=== PATIENT | female | born 1965 | race Caucasian/White ===

== ENCOUNTER 2018-12-04 07:14 | Inpatient (IN) | payer OTHER ==
[~2018-12-04] VITALS: Ht 165.1 cm; Wt 59.9 kg
[~2018-12-04 07:14] MED LIST: BUPIVACAINE 7.5MG/ML /DEXTROSE 82.5MG/ML 2 ML AMP INJ ONE; CYCLOBENZAPRINE5 MG PO; LYRICA25 MG PO; NORCO 10-325 T1 EACH PO; ROPIVACAINE 246.25 MG, EPINEPHRINE HCL 1:1000 1ML 0.5 MG, CLONIDINE HCL 0.08 MG, KETORO... INJ ONE; ULTRAM50 MG PO
--- OUTSIDE RECORDS SUMMARY | 2018-12-04 07:18 | XMS REPORT | CCD ---
Author Author Auto Generated Organization [facility] Address Unknown Phone Unavailable Care Team Providers Care Energy Scheduler Name Role Phone Darnell Seymour CP Allergies, Adverse Reactions, Alerts Substance Reaction Status NKDA Active Medications Medication Instructions Start Date End Date Status [place] 5/325 oral 1 tab, Route: PO, Drug Form: TAB, 06/14/2013 06/14/2013 Completed tablet Dosing Weight 55.455, kg, ONCE, PRN Pain, Start date: 06/14/13 20:10:00 Augmentin 875 mg 875 mg, PO, BID, 20 tab, 06/14/2013 06/24/2013 Ordered oral tablet Substitution Allowed, Maintenance [place] 5/325 oral 1 - 2 TABS, PO, Q6H, PRN, 20 tab, 06/14/2013 Ordered tablet as needed for pain, Substitution Allowed, Maintenance, TAB Ultram 50 mg oral 50 mg, 1 tab, Route: PO, Drug form: 06/14/2013 06/14/2013 Completed tablet TAB, ONCE, Dosing Weight 55.455, kg, PRN Pain, Start date: 06/14/13 19:43:00 tetanus-diphtheria 0.5 ml, Route: IM, Dosing Weight 06/14/2013 06/14/2013 Completed toxoids adult 55.455, kg, ONCE, STAT, Start date: intramuscular 06/14/13 19:43:00, Stop date: suspension 06/14/13 19:43:00 Immunizations Vaccine Date Status tetanus-diphtheria toxoids 06/14/2013 Auth (Verified) Vital Signs Most recent to oldest [Reference Range]: 1 2 Height 165.1 cm (06/14/2013 19:25:00) Temperature Oral [96.4-99.1 DegF] 99.2 DegF *HI* (06/14/2013 21:21:00) 98.5 DegF (06/14/2013 19:25:00) Systolic Blood Pressure [90-140 mmHg] 110 mmHg (06/14/2013 21:21:00) 133 mmHg (06/14/2013:25:00) Diastolic Blood Pressure [60-90 mmHg] 75 mmHg (06/14/2013:21:00) 90 mmHg (06/14/2013:25:00) Respiratory Rate [14-20 BRMIN] 18 BRMIN (06/14/2013:21:00) 18 BRMIN (06/14/2013:25:00) Peripheral Pulse Rate [60-100 bpm] 98 bpm (06/14/2013:21:00) 100 bpm (06/14/2013:25:00) Weight 55.455 kg (06/14/2013:25:00)
--- OUTSIDE RECORDS SUMMARY | 2018-12-04 07:18 | XMS REPORT | Continuity of Care Document ---
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 appearing, nondisplaced coronally oriented extra-articular fractures in the posterior calcaneus without significant adjacent bone marrow edema. The Achilles tendon and plantar fascia are intact. The dorsal and plantar tendons across the foot are intact. The Lisfranc's ligament complex is intact. The plantar plate complexes are all intact. No extracapsular mass or cystic fluid collection is seen. There is no evidence of Armas's neuroma. There is moderate-severe atrophy of the interosseous musculature in the forefoot. IMPRESSION: 1. Subacute, nondisplaced, intra-articular fracture of the 1st metatarsal base with surrounding bone marrow edema. 2. Subacute, nondisplaced fractures of the 2nd and 3rd metatarsal necks with surrounding bone marrow edema. 3. Subacute to chronic appearing nondisplaced extra-articular fractures of the posterior calcaneus. 4. Osteonecrosis in the talar head with underlying bone marrow edema. 5. Nonspecific subcortical bone marrow edema in the dorsal aspect of the medial cuneiform bone as well as medial navicular bone. 6. No evidence of osteomyelitis. SL: [id number] 04/19/2018 - - Read by: Jacobo Castro MD Dictated Date/time: 04/20/18 07:48 Electronically Signed by: Jacobo Castro MD 04/20/18 07:58 FINAL REPORT [facility] ANEMIA STUDY Folate Lvl 8.4 ng/mL >=3.0 ng/mL 04/19/2018 [facility] ANEMIA STUDY Vitamin B12 Lvl 318 pg/mL 254 - 1320 04/19/2018 [facility] CHEM PANEL eGFR 102 mL/min/1.73m2 04/19/2018 Result Comment: The eGFR is calculated using the CKD-EPI formula. In most young, healthy individuals the eGFR will be >90 mL/min/1.73m2. The eGFR declines with age. An eGFR of 60-89 may be normal in some populations, particularly the elderly, for whom the CKD-EPI formula has not been extensively validated. Use of the eGFR is not recommended in the following populations: Individuals with unstable creatinine concentrations, including patients and those with serious co-morbid conditions. Patients with extremes in muscle mass or diet. The data above are obtained from the National Kidney Disease Education Program (NKDEP) which additionally recommends that when the eGFR is used in patients with extremes of body mass index for purposes of drug dosing, the eGFR should be multiplied by the estimated BMI. [facility] CHEM PANEL BUN 7 mg/dL 7 - 22 04/19/2018 [facility] CHEM PANEL B/C Ratio 11 6 - 25 04/19/2018 [facility] CHEM PANEL Total Protein 5.3 g/dL 6.4 - 8.4 04/19/2018 [facility] CHEM PANEL AGAP 14.1 meq/L 10.0 - 20.0 04/19/2018 [facility] CHEM PANEL Calcium Lvl 7.4 mg/dL 8.5 - 10.5 04/19/2018 [facility] CHEM PANEL Albumin Lvl 2.2 g/dL 3.5 - 5.0 04/19/2018 [facility] CHEM PANEL Globulin 3.1 g/dL 2.7 - 4.2 04/19/2018 [facility] CHEM PANEL Potassium Lvl 3.1 meq/L 3.5 - 5.1 04/19/2018 [facility] CHEM PANEL Sodium Lvl 146 meq/L 135 - 145 04/19/2018 [facility] CHEM PANEL Chloride Lvl 118 meq/L 95 - 109 04/19/2018 [facility] CHEM PANEL Creatinine Lvl 0.66 mg/dL 0.50 - 1.40 04/19/2018 [facility] CHEM PANEL CO2 17 meq/L 24 - 32 04/19/2018 [facility] CHEM PANEL ALT 19 unit/L 0 - 65 04/19/2018 [facility] CHEM PANEL Alk Phos 77 unit/L 39 - 136 04/19/2018 [facility] CHEM PANEL AST 21 unit/L 0 - 37 04/19/2018 [facility] CHEM PANEL A/G Ratio 0.7 0.7 - 1.6 04/19/2018 [facility] CHEM PANEL Bili Total 0.3 mg/dL 0.2 - 1.3 04/19/2018 [facility] CHEM PANEL Glucose Lvl 95 mg/dL 70 - 99 04/19/2018 [facility] HEMATOLOGY Eosinophils 0.7 % 0.0 - 4.0 04/19/2018 [facility] HEMATOLOGY Neutrophils # 3.6 K/CMM 1.5 - 8.1 04/19/2018 [facility] HEMATOLOGY Basophils 1.3 % 0.0 - 1.0 04/19/2018 [facility] HEMATOLOGY Monocytes # 0.8 K/CMM 0.0 - 0.8 04/19/2018 [facility] Lymphocytes # 2.0 K/CMM 1.0 - 5.5 04/19/2018 [facility] Macrocyte 3+ *NA* (04/19/18 3:48 AM) None Seen 04/19/2018 [facility] Basophils # 0.1 K/CMM 0.0 - 0.2 04/19/2018 [facility] Monocytes 11.6 % 2.0 - 12.0 04/19/2018 [facility] Lymphocytes 30.2 % 20.0 - 40.0 04/19/2018 [facility] Segs 56.2 % 45.0 - 75.0 04/19/2018 [facility] MPV 8.2 fL 7.4 - 10.4 04/19/2018 [facility] Platelet 271 K/CMM 133 - 450 04/19/2018 [facility] MCHC 33.2 g/dL 32.0 - 36.0 04/19/2018 [facility] RDW 15.6 % 11.5 - 14.5 04/19/2018 [facility] RBC 2.00 M/CMM 4.20 - 5.40 04/19/2018 [facility] WBC 6.5 K/CMM 3.7 - 10.4 04/19/2018 [facility] Hgb 8.4 g/dL 12.0 - 16.0 04/19/2018 [facility] Hct 25.3 % 36.0 - 48.0 04/19/2018 [facility] MCV 126.1 fL 80.0 - 98.0 04/19/2018 [facility] MCH 41.9 pg 27.0 - 31.0 04/19/2018 [facility] URINE AND STOOL UA Urobilinogen <=1.0 mg/dL 0.1 - 1.0 04/19/2018 [facility] URINE AND STOOL UA Color Ltyellow 04/19/2018 [facility] URINE AND STOOL UA WBC 1 /HPF 0 - 5 04/19/2018 [facility] URINE AND STOOL UA Sq Epi Occasional /LPF Few /LPF 04/19/2018 [facility] URINE AND STOOL UA Leuk Est Negative (04/18/18 9:57 PM) Negative 04/19/2018 [facility] URINE AND STOOL UA Glucose Negative mg/dL Negative mg/dL 04/19/2018 [facility] URINE AND STOOL UA Bili Negative *NA* (04/18/18 9:57 PM) Negative 04/19/2018 [facility] URINE AND STOOL UA Ketones Negative mg/dL Negative mg/dL 04/19/2018 [facility] URINE AND STOOL UA Blood Negative (04/18/18 9:57 PM) Negative 04/19/2018 [facility] URINE AND STOOL UA Nitrite Negative (04/18/18 9:57 PM) Negative 04/19/2018 [facility] URINE AND STOOL UA Spec Grav 1.012 <=1.030 04/19/2018 [facility] URINE AND STOOL UA pH 6.0 5.0 - 8.0 04/19/2018 [facility] URINE AND STOOL UA Protein Negative mg/dL Negative mg/dL 04/19/2018 [facility] URINE AND STOOL UA Turbidity Clear (04/18/18 9:57 PM) Clear 04/19/2018 [facility] CARDIAC ENZYMES Troponin-I null 0.00 - 0.40 04/19/2018 [facility] CARDIAC ENZYMES Total CK 49 unit/L 12 - 191 04/19/2018 [facility] CHEM PANEL Lactic Acid Lvl 1.8 mMol/L 0.5 - 2.2 04/19/2018 [facility] CHEM PANEL eGFR 100 mL/min/1.73m2 04/19/2018 Result Comment: The eGFR is calculated using the CKD-EPI formula. In most young, healthy individuals the eGFR will be >90 mL/min/1.73m2. The eGFR declines with age. An eGFR of 60-89 may be normal in some populations, particularly the elderly, for whom the CKD-EPI formula has not been extensively validated. Use of the eGFR is not recommended in the following populations: Individuals with unstable creatinine concentrations, including patients and those with serious co-morbid conditions. Patients with extremes in muscle mass or diet. The data above are obtained from the National Kidney Disease Education Program (NKDEP) which additionally recommends that when the eGFR is used in patients with extremes of body mass index for purposes of drug dosing, the eGFR should be multiplied by the estimated BMI. [facility] CHEM PANEL AST 21 unit/L 0 - 37 04/19/2018 [facility] CHEM PANEL ALT 20 unit/L 0 - 65 04/19/2018 [facility] CHEM PANEL Globulin 2.9 g/dL 2.7 - 4.2 04/19/2018 [facility] CHEM PANEL Albumin Lvl 2.3 g/dL 3.5 - 5.0 04/19/2018 [facility] CHEM PANEL Total Protein 5.2 g/dL 6.4 - 8.4 04/19/2018 [facility] CHEM PANEL AGAP 13.7 meq/L 10.0 - 20.0 04/19/2018 [facility] CHEM PANEL A/G Ratio 0.8 0.7 - 1.6 04/19/2018 [facility] CHEM PANEL Chloride Lvl 117 meq/L 95 - 109 04/19/2018 [facility] CHEM PANEL B/C Ratio 9 6 - 25 04/19/2018 [facility] CHEM PANEL Calcium Lvl 7.2 mg/dL 8.5 - 10.5 04/19/2018 [facility] CHEM PANEL CO2 16 meq/L 24 - 32 04/19/2018 [facility] CHEM PANEL Potassium Lvl 2.7 meq/L 3.5 - 5.1 04/19/2018 Result Comment: Critical Result(s) called to Terry at 04/18/2018 22:15 by iko. Read back OK. [facility] CHEM PANEL Sodium Lvl 144 meq/L 135 - 145 04/19/2018 [facility] CHEM PANEL Creatinine Lvl 0.70 mg/dL 0.50 - 1.40 04/19/2018 [facility] CHEM PANEL BUN 6 mg/dL 7 - 22 04/19/2018 [facility] CHEM PANEL Glucose Lvl 95 mg/dL 70 - 99 04/19/2018 [facility] CHEM PANEL Bili Total 0.1 mg/dL 0.2 - 1.3 04/19/2018 [facility] CHEM PANEL Alk Phos 83 unit/L 39 - 136 04/19/2018 [facility] CHEM PANEL Procalcitonin Lvl 87.53 ng/mL 0.00 - 0.10 04/19/2018 Result Comment: Critical Result(s) called to Terry at 04/18/2018 22:32 by iko. Read back OK. [facility] HEMATOLOGY PTT 27.7 s 22.9 - 35.8 04/19/2018 [facility] HEMATOLOGY PT 13.2 s 12.0 - 14.7 04/19/2018 [facility] HEMATOLOGY INR 1.00 0.85 - 1.17 04/19/2018 [facility] HEMATOLOGY MPV 8.1 fL 7.4 - 10.4 04/19/2018 [facility] HEMATOLOGY Platelet 351 K/CMM 133 - 450 04/19/2018 [facility] HEMATOLOGY MCHC 32.1 g/dL 32.0 - 36.0 04/19/2018 [facility] Hct 28.9 % 36.0 - 48.0 04/19/2018 [facility] MCH 40.2 pg 27.0 - 31.0 04/19/2018 [facility] RDW 15.5 % 11.5 - 14.5 04/19/2018 [facility] MCV 125.5 fL 80.0 - 98.0 04/19/2018 [facility] WBC 5.5 K/CMM 3.7 - 10.4 04/19/2018 [facility] Hgb 9.3 g/dL 12.0 - 16.0 04/19/2018 [facility] RBC 2.31 M/CMM 4.20 - 5.40 04/19/2018 [facility] Macrocyte 3+ *NA* (04/18/18 9:11 PM) None Seen 04/19/2018 [facility] Plt Morph Normal (04/18/18 9:11 PM) 04/19/2018 [facility] RBC Morph See Note (04/18/18 9:11 PM) 04/19/2018 [facility] Segs 43.5 % 45.0 - 75.0 04/19/2018 [facility] Monocytes 11.1 % 2.0 - 12.0 04/19/2018 [facility] Lymphocytes 42.9 % 20.0 - 40.0 04/19/2018 [facility] Eosinophils 0.7 % 0.0 - 4.0 04/19/2018 [facility] Lymphocytes # 2.4 K/CMM 1.0 - 5.5 04/19/2018 [facility] Monocytes # 0.6 K/CMM 0.0 - 0.8 04/19/2018 [facility] Basophils # 0.1 K/CMM 0.0 - 0.2 04/19/2018 [facility] Basophils 1.8 % 0.0 - 1.0 04/19/2018 [facility] Neutrophils # 2.4 K/CMM 1.5 - 8.1 04/19/2018 [facility] Foot series DX Foot series DX Exam: Right Foot series DX Clinical Indication: Right foot pain and swelling Comparison: None FINDINGS: 3 views of the right foot are performed. Status post amputation of the great toe at the level of the MTP joint. Diffuse osteopenia is present. Cortical irregularity with surrounding hypertrophic change at the 2nd and 3rd metatarsal necks are suspicious for subacute fractures. No osseous erosions identified. Normal alignment without dislocation. Soft tissue swelling is present in the forefoot. No radiopaque foreign bodies or soft tissue gas. IMPRESSION: 1. Suspected subacute fractures of the 2nd and 3rd metatarsal necks. Changes of underlying osteomyelitis may also be considered. Further assessment with MRI of the foot may be performed as clinically warranted. 2. Status post amputation of the great toe. 3. Forefoot soft tissue swelling. SL: [id number] 04/18/2018 - - Read by: Rogelio Santana MD Dictated Date/time: 04/18/18 16:48 Electronically Signed by: Rogelio Santana MD 04/18/18 16:52 FINAL REPORT [facility] Ext Lower Venous Doppler Unilat US Ext Lower Venous Doppler Unilat US EXAM: Right lower extremity venous Doppler ultrasound HISTORY: Right lower extremity pain COMPARISON: Ultrasound 07/23/2014 TECHNIQUE: Sonographic evaluation of the right lower extremity deep veins was performed using high resolution B-mode imaging, along with pulse and color Doppler imaging. FINDINGS: The common femoral, femoral and popliteal veins and greater saphenous and posterior tibial veins are patent. IMPRESSION: No deep vein thrombosis is seen in the right lower extremity. SL: [id number] 04/18/2018 - - Read by: Jose Luis Johnson MD Dictated Date/time: 04/18/18 16:25 Electronically Signed by: Jose Luis Johnson MD 04/18/18 16:25 FINAL REPORT [facility] Pelvis AP DX Pelvis AP DX EXAM: Pelvis AP DX DATE: 05/26/2016 8:46 PM CDT INDICATION: Pain Post Trauma COMPARISON: 02/16/2016. IMPRESSION: Diffuse osteopenia. No definite acute fracture or dislocation. Severe degenerative change of the right hip with marked joint space narrowing and subchondral sclerosis and lucency. : [id number] 05/26/2016 - - Read by: David Kyle MD Dictated Date/time: 05/26/16 21:36 Electronically Signed by: David Kyle MD 05/26/16 21:37 FINAL REPORT [facility] Hip 2/3 views uni DX Hip 2/3 views uni DX EXAM: XR RIGHT HIP, 2 VIEWS DATE: 05/26/2016 8:46 PM CDT INDICATION: Pain Post Trauma. COMPARISON: Right hip radiographs dated 02/16/2016. TECHNIQUE: Frontal and frogleg lateral views of the right hip were obtained. FINDINGS: There are severe degenerative changes of the right hip, with superior migration of the right femoral head associated with extensive joint space narrowing, femoral head remodeling, articular surface sclerosis, as well as bulky osteophyte formation. The visualized sacroiliac joint and symphysis pubis are unremarkable. IMPRESSION: 1. No definite fracture or dislocation of the right hip. 2. Severe degenerative changes of the right femoral-acetabular joint. SL: [id number] 05/26/2016 - - Read by: Merrill Webber MD Dictated Date/time: 05/26/16 21:49 Electronically Signed by: Merrill Webber MD 05/26/16 21:51 FINAL REPORT [facility] Hip 2/3 views uni DX Hip 2/3 views uni DX Patient Name: MATT CALZADA : 1965; Age: 50 years y/o Female MR: [id number] Study: Hip 2/3 views uni DX 02/16/2016 1:46 PM CDT Ordering Physician: Clinical Indication: Pain Post Trauma; right hip pain Comparison: 09/28/2015 FINDINGS: The 2 views of the right hip show normal alignment without fractures or dislocations. There are no radio-opaque foreign bodies. The acetabulum is unremarkable. Right hip joint space shows narrowing with superior femoral head migration, femoral head flattening, articular surface sclerosis and collar osteophytes. The visualized sacroiliac joint and symphysis pubis are unremarkable. If there is further concern, recommend follow-up radiographs or MRI for complete assessment. IMPRESSION: No fracture or dislocation of the right hip. Right hip moderately severe osteoarthritis SL: [id number] 02/16/2016 - - Read by: Chas Hall MD Dictated Date/time: 02/16/16 14:34 Electronically Signed by: Chas Hall MD 02/16/16 14:38 FINAL REPORT [facility] Femur series DX Femur series DX EXAM: XR RIGHT FEMUR 2 VIEWS DATE: 09/28/2015 7:45 PM PRODUCTION SUPPORT ANALYST INDICATION: Pain from a fall COMPARISON: Right hip radiographs from 09/11/2015 TECHNIQUE: AP and lateral radiographs of the right femur DISCUSSION: No acute fracture or malalignment is identified. Continued severe degenerative joint space narrowing of the right hip joint. No soft tissue abnormality is identified. IMPRESSION: 1. No acute fracture. 2. Unchanged severe right hip osteoarthrosis. 09/28/2015 - - This report was dictated by a Putty Mixer/Fellow. I have personally reviewed the images as well as the Resident's interpretation and agree with the findings. Read by: Jordan Dawkins MD Resident: Jordan Dawkins MD Dictated Date/time: 09/28/15 20:25 Electronically Signed by: Richi Israel MD 09/28/15 20:45 FINAL REPORT [facility] Hip 2 views DX Hip 2 views DX RIGHT HIP 2 VIEWS: There is no fracture or dislocation. There is marked narrowing of the superior joint space with flattening, sclerosis and subchondral cyst formation in the articular surfaces, and lateral subluxation of the femoral head, unchanged from the previous radiographs on 07/29/2015. The findings are progressive compared to 07/23/2014. There are no other new findings. IMPRESSION: Severe degenerative changes in the right hip without acute radiographic abnormalities. SL:13 09/11/2015 - - Read by: Julio Mathis MD Dictated Date/time: 09/11/15 16:29 Electronically Signed by: Julio Mathis MD 09/11/15 16:33 FINAL REPORT [facility] Pelvis AP DX Pelvis AP DX PELVIS (1 view) History: A pelvic and right hip pain. Comment : A frontal view of the pelvis was obtained. FINDINGS: 1. Severe degenerative changes involving the right hip. Please refer to radiographic report of the right hip. 2. The left hip is grossly normal. 3. The pelvic ring is intact. Coding: Pelvis AP CPT code: 58320 SL: 13 Chivo Patel M.D. 07/29/2015 - - Read by: Chivo Patel MD Dictated Date/time: 07/29/15 15:19 Electronically Signed by: Chivo Patel MD 07/29/15 15:21 FINAL REPORT [facility] Hip 2 views DX Hip 2 views DX RIGHT HIP (2 Views) HISTORY: Right hip pain. TECHNIQUE: The right hip was evaluated in neutral and external rotation. A prior study of 07/23/[address] scan of the pelvis of 01/25/2010 were reviewed. FINDINGS: 1. There are severe degenerative changes involving the right hip with marked narrowing of the superior joint space, slight flattening of the femoral head, subchondral sclerosis, and mild subchondral cyst formation. There has been significant worsening from approximately one year ago and marked progression from the CT scan from December 2009. 2. There is no evidence of fracture, dislocation, or acute change. 3. No destructive lesions or other osseous abnormalities. Coding: Hip min 2 views CPT code: 59108 SL: 13 Chivo Patel M.D. 07/29/2015 - - Read by: Chivo Patel MD Dictated Date/time: 07/29/15 15:16 Electronically Signed by: Chivo Patel MD 07/29/15 15:19 FINAL REPORT [facility] Spine cervical wo contrast CT (ER) Spine cervical wo contrast CT (ER) CT C-SPINE WITHOUT CONTRAST INDICATION: Trauma, pain COMPARISON: None available TECHNIQUE: CT of the cervical spine was performed without intravenous contrast. Coronal and sagittal reformatted images were utilized. FINDINGS: No fracture. Vertebral body and disc space heights maintained. No facet subluxation. No prevertebral soft tissue swelling. Normal alignment. Ligament, spinal cord and/or vascular abnormalities cannot be excluded on the basis of this examination. Lung apices clear. Thyroid unremarkable. Carotid arteries are heavily calcified, right greater than left. IMPRESSION: No acute abnormality. SL: 14 05/10/2015 - - Read by: Giancarlo Dang MD Dictated Date/time: 05/10/15 22:39 Electronically Signed by: Giancarlo Dang MD 05/10/15 22:41 FINAL REPORT [facility] Brain wo contrast CT Brain wo contrast CT CT head without contrast. CLINICAL INDICATION: Head trauma/ See Clinic Indication. Trauma, pain Comparison: 01/25/2010. TECHNIQUE: Multiple contiguous axial images of the brain were performed without IV contrast. FINDINGS: No acute territorial infarction or intracranial hemorrhage. Ventricles and subarachnoid spaces are appropriate for age. No extra-axial fluid collection. Reaves-white distinction is preserved. No mass, mass-effect, or midline shift. Osseous structures normal. Visualized paranasal sinuses are unremarkable. IMPRESSION: No acute intracranial process detected. SL: 14 05/10/2015 - - Read by: Giancarlo Dang MD Dictated Date/time: 05/10/15 22:38 Electronically Signed by: Giancarlo Dang MD 05/10/15 22:39 FINAL REPORT [facility] Abdomen AP DX Abdomen AP DX PROCEDURE: Abdomen 1 view REASON FOR EXAM: See Clinic Indication CLINICAL INDICATION: Abdominal pain, acute COMPARISON: None. FINDINGS: Nonspecific bowel gas pattern is present. Abundance of stool within the colon. Severe degenerative arthropathy of the right hip SL: 05/10/2015 - - Read by: David Kyle MD Dictated Date/time: 05/10/15 21:52 Electronically Signed by: David Kyle MD 05/10/15 21:52 FINAL REPORT [facility] Chest 2 views DX Chest 2 views DX PROCEDURE: Chest 2 views REASON FOR EXAM: See Clinic Indication CLINICAL INDICATION: Pain Post Trauma COMPARISON: Chest radiograph of 05/08/2015. CT chest abdomen pelvis of 01/25/2010. FINDINGS: Stable known 3.1 cm right upper lobe mass with partial calcification. No focal consolidation, significant pleural effusion or pneumothorax. Stable cardiac silhouette and mediastinum. Atherosclerotic thoracic aorta. SL: 05/10/2015 - - Read by: David Kyle MD Dictated Date/time: 05/10/15 21:47 Electronically Signed by: David Kyle MD 05/10/15 21:49 FINAL REPORT [facility] Chest 2 views DX Chest 2 views DX CHEST RADIOGRAPH 2 VIEWS INDICATION: Posttraumatic chest pain COMPARISON: Chest radiograph , CT Chest 01/25/2010 IMPRESSION: Multiple scattered bilateral pulmonary nodules are grossly stable in size and number. There is progressed calcification of the 3.1 cm nodule of the right upper lung. The etiology is indeterminate, potentially secondary to changes of chronic granulomatous disease. Otherwise, no acute intrathoracic abnormalities are visualized. SL: 16 05/08/2015 - - Read by: Artur Garcia MD Dictated Date/time: 05/08/15 17:05 Electronically Signed by: Artur Garcia MD 05/08/15 17:09 FINAL REPORT [facility] URINE CHEM U Preg Negative (07/23/14 2:20 PM) Negative 07/23/2014 [facility] Knee series Knee series Left knee, 4 view: Exam reason: Dot by, trauma No acute fracture or dislocation is noted. No radiopaque foreign body is noted. SL:14 06/14/2013 - - Read by: Kenji Calhoun Dictated Date/time: 06/14/13 21:00 Electronically Signed by: Kenji Calhoun MD 06/14/13 21:01 FINAL REPORT [facility] Vital Signs Vital Sign Value Date Comments Source Systolic (mm Hg) 118 04/21/2018 [facility] Diastolic (mm Hg) 77 04/21/2018 [facility] Heart Rate 78 04/21/2018 [facility] Temperature Oral (F) 97.6 F 04/21/2018 [facility] Respitory Rate 18 04/21/2018 [facility] Systolic (mm Hg) 110 04/21/2018 [facility] Diastolic (mm Hg) 75 04/21/2018 [facility] Respitory Rate 20 04/21/2018 [facility] Heart Rate 98 04/21/2018 [facility] Temperature Oral (F) 98 F 04/21/2018 [facility] Systolic (mm Hg) 125 04/21/2018 [facility] Diastolic (mm Hg) 74 04/21/2018 [facility] Respitory Rate 18 04/21/2018 [facility] Temperature Oral (F) 98 F 04/21/2018 [facility] Heart Rate 95 04/21/2018 [facility] Height 165.1 cm 04/19/2018 [facility] BMI Calculated 19.03 04/19/2018 [facility] Weight 51.875 04/19/2018 [facility] Weight 59.091 04/18/2018 [facility] Height 165.1 cm 04/18/2018 [facility] BMI Calculated 21.68 04/18/2018 [facility] Heart Rate 86 05/27/2016 [facility] Respitory Rate 18 05/27/2016 [facility] Temperature Oral (F) 98.3 F 05/27/2016 [facility] Systolic (mm Hg) 118 05/27/2016 [facility] Diastolic (mm Hg) 74 05/27/2016 [facility] Heart Rate 88 05/27/2016 [facility] Diastolic (mm Hg) 72 05/27/2016 [facility] Systolic (mm Hg) 116 05/27/2016 [facility] Respitory Rate 18 05/27/2016 [facility] Weight 59.091 05/26/2016 [facility] Temperature Oral (F) 98 F 05/26/2016 [facility] Heart Rate 105 05/26/2016 [facility] Respitory Rate 18 05/26/2016 [facility] Systolic (mm Hg) 112 05/26/2016 [facility] Diastolic (mm Hg) 69 05/26/2016 [facility] Systolic (mm Hg) 149 02/16/2016 [facility] Diastolic (mm Hg) 94 02/16/2016 [facility] Heart Rate 60 02/16/2016 [facility] Respitory Rate 20 02/16/2016 [facility] Temperature Oral (F) 98.4 F 02/16/2016 [facility] Weight 53.381 02/16/2016 [facility] Height 165.1 cm 02/16/2016 [facility] BMI Calculated 19.58 02/16/2016 [facility] Systolic (mm Hg) 141 02/16/2016 [facility] Diastolic (mm Hg) 65 02/16/2016 [facility] Heart Rate 77 02/16/2016 [facility] Respitory Rate 18 02/16/2016 [facility] Heart Rate 101 10/14/2015 [facility] Systolic (mm Hg) 133 10/14/2015 [facility] Diastolic (mm Hg) 85 10/14/2015 [facility] Respitory Rate 20 10/14/2015 [facility] Temperature Oral (F) 98.2 F 10/14/2015 [facility] Height 165.1 cm 10/14/2015 [facility] BMI Calculated 20.68 10/14/2015 [facility] Weight 56.364 10/14/2015 [facility] Respitory Rate 18 09/29/2015 [facility] Heart Rate 98 09/29/2015 [facility] Systolic (mm Hg) 121 09/29/2015 [facility] Diastolic (mm Hg) 80 09/29/2015 [facility] Respitory Rate 20 09/29/2015 [facility] Heart Rate 105 09/29/2015 [facility] Systolic (mm Hg) 123 09/29/2015 [facility] Diastolic (mm Hg) 84 09/29/2015 [facility] Temperature Oral (F) 98.3 F 09/29/2015 [facility] BMI Calculated 20.01 09/29/2015 [facility] Height 165.1 cm 09/29/2015 [facility] Weight 54.545 09/29/2015 [facility] Temperature Oral (F) 98.0 F 09/11/2015 [facility] Height 165.1 cm 09/11/2015 [facility] Weight 57.273 09/11/2015 [facility] BMI Calculated 21.01 09/11/2015 [facility] Heart Rate 93 09/11/2015 [facility] Systolic (mm Hg) 104 09/11/2015 [facility] Diastolic (mm Hg) 63 09/11/2015 [facility] Respitory Rate 18 09/11/2015 [facility] Systolic (mm Hg) 132 08/12/2015 [facility] Diastolic (mm Hg) 92 08/12/2015 [facility] Heart Rate 91 08/12/2015 [facility] Respitory Rate 20 08/12/2015 [facility] Temperature Oral (F) 98.0 F 08/12/2015 [facility] Weight 56.818 08/12/2015 [facility] BMI Calculated 20.84 08/12/2015 [facility] Height 165.1 cm 08/12/2015 [facility] Temperature Oral (F) 97.9 F 08/12/2015 [facility] Systolic (mm Hg) 126 08/12/2015 [facility] Diastolic (mm Hg) 86 08/12/2015 [facility] Heart Rate 108 08/12/2015 [facility] Respitory Rate 18 08/12/2015 [facility] Respitory Rate 18 07/29/2015 [facility] Systolic (mm Hg) 141 07/29/2015 [facility] Diastolic (mm Hg) 87 07/29/2015 [facility] Heart Rate 92 07/29/2015 [facility] Temperature Oral (F) 98.1 F 07/29/2015 [facility] Heart Rate 116 07/29/2015 [facility] Respitory Rate 18 07/29/2015 [facility] Systolic (mm Hg) 165 07/29/2015 [facility] Diastolic (mm Hg) 85 07/29/2015 [facility] Temperature Oral (F) 98.1 F 07/29/2015 [facility] Weight 56.818 07/29/2015 [facility] Height 165.1 cm 07/29/2015 [facility] BMI Calculated 20.84 07/29/2015 [facility] Respitory Rate 16 05/08/2015 [facility] Systolic (mm Hg) 132 05/08/2015 [facility] Diastolic (mm Hg) 76 05/08/2015 [facility] Heart Rate 54 05/08/2015 [facility] Weight 59.091 05/08/2015 [facility] Heart Rate 87 05/08/2015 [facility] Systolic (mm Hg) 134 05/08/2015 [facility] Diastolic (mm Hg) 81 05/08/2015 [facility] Respitory Rate 16 05/08/2015 [facility] Temperature Oral (F) 98.2 F 05/08/2015 [facility] Diastolic (mm Hg) 92 08/21/2014 [facility] Systolic (mm Hg) 151 08/21/2014 [facility] Temperature Oral (F) 98.3 F 08/21/2014 [facility] Respitory Rate 18 08/21/2014 [facility] Heart Rate 91 08/21/2014 [facility] Height 165.1 cm 08/21/2014 [facility] BMI Calculated 21.68 08/21/2014 [facility] Weight 59.091 08/21/2014 [facility] Diastolic (mm Hg) 68 07/23/2014 [facility] Heart Rate 92 07/23/2014 [facility] Temperature Oral (F) 98.3 F 07/23/2014 [facility] Respitory Rate 16 07/23/2014 [facility] Systolic (mm Hg) 128 07/23/2014 [facility] Diastolic (mm Hg) 80 07/23/2014 [facility] Systolic (mm Hg) 149 07/23/2014 [facility] Respitory Rate 18 07/23/2014 [facility] Heart Rate 95 07/23/2014 [facility] Temperature Oral (F) 98.2 F 07/23/2014 [facility] Diastolic (mm Hg) 102 07/23/2014 [facility] Heart Rate 103 07/23/2014 [facility] Respitory Rate 18 07/23/2014 [facility] Systolic (mm Hg) 133 07/23/2014 [facility] Temperature Oral (F) 98.0 F 07/23/2014 [facility] Respitory Rate 18 03/14/2014 [facility] Temperature Oral (F) 98.7 F 03/14/2014 [facility] Heart Rate 89 03/14/2014 [facility] Diastolic (mm Hg) 66 03/14/2014 [facility] Systolic (mm Hg) 132 03/14/2014 [facility] BMI Calculated 22.01 03/14/2014 [facility] Height 165.1 cm 03/14/2014 [facility] Weight 60 03/14/2014 [facility] Respitory Rate 18 03/14/2014 [facility] Temperature Oral (F) 98.6 F 03/14/2014 [facility] Diastolic (mm Hg) 88 03/14/2014 [facility] Heart Rate 95 03/14/2014 [facility] Systolic (mm Hg) 151 03/14/2014 [facility] Heart Rate 100 06/20/2013 [facility] Systolic (mm Hg) 139 06/20/2013 [facility] Diastolic (mm Hg) 91 06/20/2013 [facility] Temperature Oral (F) 98.5 F 06/20/2013 [facility] Respitory Rate 16 06/20/2013 [facility] Height 165.1 cm 06/20/2013 [facility] Weight 59.091 06/20/2013 [facility] Diastolic (mm Hg) 75 06/15/2013 [facility] Respitory Rate 18 06/15/2013 [facility] Systolic (mm Hg) 110 06/15/2013 [facility] Temperature Oral (F) 99.2 F 06/15/2013 [facility] Heart Rate 98 06/15/2013 [facility] Weight 55.455 06/15/2013 [facility] Height 165.1 cm 06/15/2013 [facility] Systolic (mm Hg) 133 06/15/2013 [facility] Diastolic (mm Hg) 90 06/15/2013 [facility] Respitory Rate 18 06/15/2013 [facility] Temperature Oral (F) 98.5 F 06/15/2013 [facility] Heart Rate 100 06/15/2013 [facility] Encounters Location Location Details Encounter Type Encounter Number Reason For Visit Attending Provider ADM Date DC Date Status Source [facility] Emergency [id number] DARNELL BATRESE 06/14/2013 06/14/2013 Active [facility] Emergency [id number] KAROLINEDIPIKA LUIS 06/20/2013 06/20/[address] [facility] [id number] Remi Guerrero 03/14/2014 03/14/2014 [facility] [id number] Zak Castillo 07/23/2014 07/23/2014 [facility] [id number] Tam Banks 08/21/2014 08/21/2014 [facility] [id number] Darnell David 05/08/2015 05/08/2015 [facility] [id number] Mindy Siddiqui 07/29/2015 07/29/2015 [facility] [id number] Tomás Clements 08/12/2015 08/12/2015 [facility] [id number] Zak Castillo 09/11/2015 09/12/2015 [facility] [id number] Freddy Alber 09/29/2015 09/29/2015 [facility] [id number] Brigida Kyle 10/14/2015 10/14/2015 [facility] [id number] Jordan Wilhelm 02/16/2016 02/16/2016 [facility] Emergency [id number] Kenyatta Rodgers 05/26/2016 05/27/2016 [facility] Inpatient [id number] Alejandro Contreras 04/18/2018 04/21/2018 [facility] Procedures Procedure Code Date Perfomer Comments Source Administration of Diphtheria Toxoid 99.36 06/14/2013 [facility] Administration of Tetanus Toxoid 99.38 06/14/2013 [facility] Emergency department visit for the evaluation and management of a patient, which requires these 3 arguelles components: An expanded problem focused history; An expanded problem focused examination; and Medical decision making of moderate complexity. Counseling [id number] 06/14/2013 [facility] Immunization administration (includes percutaneous, intradermal, subcutaneous, or intramuscular injections); 1 vaccine (single or combination vaccine/toxoid) 45385 06/14/2013 [facility] Abdominal wall operations<sup>1</sup> [id number] ectopic preg [facility] section [id number] [facility] Hand repair [id number] [facility] Abdominal wall operations<sup>1</sup> [id number] ectopic preg [facility] section [id number] [facility] Hand repair [id number] [facility]
--- OUTSIDE RECORDS SUMMARY | 2018-12-04 07:18 | XMS REPORT | CCD ---
Author Author Auto Generated Organization [facility] Address Unknown Phone Unavailable Care Team Providers Care Presiding Steward Name Role Phone Darnell Seymour CP Allergies, Adverse Reactions, Alerts Substance Reaction Status NKDA Active Medications Medication Instructions Start Date End Date Status [place] 5/325 oral 1 tab, Route: PO, Drug Form: TAB, 06/14/2013 06/14/2013 Completed tablet Dosing Weight 55.455, kg, ONCE, PRN Pain, Start date: 06/14/13 20:10:00 Augmentin 875 mg 875 mg, PO, BID, 20 tab, 06/14/2013 06/24/2013 Ordered oral tablet Substitution Allowed, Maintenance [place] 5/325 oral 1 - 2 TABS, PO, [...]
--- OUTSIDE RECORDS SUMMARY | 2018-12-04 07:18 | XMS REPORT | CCD ---
Author Author Auto Generated Organization [facility] Address Unknown Phone Unavailable Care Team Providers Care Content Coordinator Name Role Phone Abelardo Monae CP Allergies, Adverse Reactions, Alerts Substance Reaction Status NKDA Active Medications Medication Instructions Start Date End Date Status tetanus-diphtheria 0.5 ml, Route: IM, Dosing Weight 06/14/2013 06/14/2013 Completed toxoids adult 55.455, kg, ONCE, STAT, Start date: intramuscular 06/14/13 19:43:00, Stop date: suspension 06/14/13 19:43:00 Immunizations Vaccine Date Status tetanus-diphtheria toxoids 06/14/2013 Auth (Verified) Vital Signs Most recent to oldest [Reference Range]: 1 Height 165.1 cm (06/20/2013 17:07:00) Temperature Oral [96.4-99.1 DegF] 98.5 DegF (06/20/2013 17:08:00) Systolic Blood Pressure [90-140 mmHg] 139 mmHg (06/20/2013 17:08:00) Diastolic Blood Pressure [60-90 mmHg] 91 mmHg *HI* (06/20/2013 17:08:00) Respiratory Rate [14-20 BRMIN] 16 BRMIN (06/20/2013 17:08:00) Peripheral Pulse Rate [60-100 bpm] 100 bpm (06/20/2013 17:08:00) Weight 59.091 kg (06/20/2013 17:07:00)
--- OUTSIDE RECORDS SUMMARY | 2018-12-04 07:18 | XMS REPORT | CCD ---
Author Author Auto Generated Organization [facility] Address Unknown Phone Unavailable Care Team Providers Care Apiarist Name Role Phone Abelardo Monae CP Allergies, [...]
--- OUTSIDE RECORDS SUMMARY | 2018-12-04 07:18 | XMS REPORT | CCD ---
Author Author Auto Generated Organization [facility] Address Unknown Phone Unavailable Care Team Providers Care Lead Painter Name Role Phone Abelardo Monae CP Allergies, [...]
--- OUTSIDE RECORDS SUMMARY | 2018-12-04 07:18 | XMS REPORT | Summary of Care ---
Author Author [facility] Organization [facility] Address Unknown Phone Unavailable Encounter HQ French(MORRIS) [id number] Date(s): 04/18/18 - 04/21/18 [facility] [address] [place] [address]- Encounter Diagnosis Foot infection (Discharge Diagnosis) - 04/18/18 Type 2 diabetes mellitus with other specified complication (Final) - 04/28/18 Hypokalemia (Final) - Type 2 diabetes mellitus with diabetic peripheral angiopathy without gangrene (Final) - Type 2 diabetes mellitus with diabetic polyneuropathy (Final) - Deficiency of other specified B group vitamins (Final) - Nicotine dependence, cigarettes, uncomplicated (Final) - Anxiety disorder, unspecified (Final) - Essential (primary) hypertension (Final) - Displaced fracture of third metatarsal bone, unspecified foot, initial encounter for closed fracture (Final) - Unspecified place in unspecified non-institutional (private) residence as the pl [place] of occurrence of the external cause (Final) - Acquired absence of right great toe (Final) - Nondisplaced fracture of first metatarsal bone, right foot, initial encounter fo r closed fracture (Final) - Nondisplaced fracture of second metatarsal bone, right foot, initial encounter f or closed fracture (Final) - Nondisplaced fracture of third metatarsal bone, right foot, initial encounter fo r closed fracture (Final) - Exposure to other specified factors, initial encounter (Final) - Pain in right foot (Final) - Paresthesia of skin (Final) - Discharge Disposition: Home or Self Care Attending Physician: Alejandro Contreras MD Admitting Physician: Alejandro Contreras MD Vital Signs 1 2 3 Most recent to oldest [Reference Range]: 165.1 cm (04/19/18 2:55 AM) 165.1 cm (04/18/18 2:28 PM) Height 56.045 kg (04/20/18 6:32 AM) Current Weight 97.6 DegF (04/21/18 4:00 AM) 98 DegF (04/21/18 12:00 AM) 98 DegF (04/20/18 7:45 PM) Temperature Oral [96.4-99.1 DegF] 118/77 mmHg (04/21/18 4:00 AM) 110/75 mmHg (04/21/18 12:00 AM) 125/74 mmHg (04/20/18 7:45 PM) Blood Pressure [90-140/60-90 mmHg] 18 BRMIN (04/21/18 4:00 AM) 20 BRMIN (04/21/18 12:00 AM) 18 BRMIN (04/20/18 7:45 PM) Respiratory Rate [14-20 BRMIN] 78 bpm (04/21/18 4:00 AM) 98 bpm (04/21/18 12:00 AM) 95 bpm (04/20/18 7:45 PM) Peripheral Pulse Rate [60-100 bpm] 51.875 kg (04/19/18 2:55 AM) 59.091 kg (04/18/18 2:28 PM) Weight 19.03 m2 (04/19/18 2:55 AM) 21.68 m2 (04/18/18 2:28 PM) Body Mass Index Problem List Condition Effective Dates Status Health Status Informant Anxiety(Confirmed)1 Active Ectopic Resolved (Confirmed) Hypertension(Confirm Active ed)2 1states out of meds 2states out of meds Allergies, Adverse Reactions, Alerts Substance Reaction Severity Status Toradol Active fentaNYL Active Medications ATTN RN please do not admin vanc dose until trough drawn* ATTN RN please do not admin vanc dose until trough drawn*, ATTN RN, Drug form: MISC, Route: MISC, ONCE, 04/20/18 10:00:00 CDT, Stop date: 04/20/18 10:00: 00 CDT Start Date: 04/20/18 Stop Date: 04/20/18 Status: Completed acetaminophen 650 mg, 2 tab, Route: PO, Drug form: TAB, Q4H, Dosing Weight 59.091, kg, PRN Marjorie n 1-3/Temp > 100.4 F, Start date: 04/18/18 23:46:00 CDT, Duration: 30 day, Stop date: 05/18/18 23:45:00 CDT Notes: Do not exceed 4 gm/day. (Same as: Tylenol) Start Date: 04/18/18 Stop Date: 04/21/18 Status: Discontinued acetaminophen-hydrocodone 325 mg-5 mg oral tablet 2 tab, Route: PO, Drug Form: TAB, Dosing Weight 59.091, kg, Q4H, PRN Pain Score 7-10, Start date: 04/18/18 23:46:00 CDT, Duration: 30 day, Stop date: 05/18/18 2 3:45:00 CDT Notes: (Same as: [place] 325/5) Do not exceed 4gm/day of acetaminophen. Start Date: 04/18/18 Stop Date: 04/21/18 Status: Discontinued cefepime + Sodium Chloride 0.9% IV 100 mL 1 gm, Route: IVPB, [id number], Dosing Weight 51.875, kg, (CrCl 30 - 49 ml/min), Sta rt date: 04/19/18 14:00:00 CDT, Duration: 5 day, Stop date: 04/24/18 2:00:00 CDT , ABX Indication: Bacteremia Notes: (Same As: Maxipime) MEDICATION WASTE Product Size: 1000 mgProduc t Wasted: ___ mg Start Date: 04/19/18 Stop Date: 04/20/18 Status: Discontinued docusate 100 mg, 1 cap, Route: PO, Drug form: CAP, BID, Dosing Weight 59.091, kg, Start d ate: 04/19/18 9:00:00 CDT, Duration: 30 day, Stop date: 05/18/18 17:00:00 CDT Notes: (Same as: Colace) (Do Not Crush) Start Date: 04/19/18 Stop Date: 04/21/18 Status: Discontinued folic acid 1 mg, 1 tab, Route: PO, Drug form: TAB, Daily, Dosing Weight 51.875, kg, Start d ate: 04/20/18 9:00:00 CDT, Duration: 30 day, Stop date: 05/19/18 9:00:00 CDT Notes: (Same as: Folvite) Start Date: 04/20/18 Stop Date: 04/21/18 Status: Discontinued lisinopril 20 mg, 1 tab, Route: PO, Drug form: TAB, Daily, Dosing Weight 51.875, kg, Start date: 04/20/18 9:00:00 CDT, Duration: 30 day, Stop date: 05/19/18 9:00:00 CDT Notes: (Same as: Prinivil, Zestril) Start Date: 04/20/18 Stop Date: 04/21/18 Status: Discontinued magnesium sulfate 2 gm in Water 50 ml 2 gm, 50 mL, Route: IVPB, Drug form: INJ, ONCE, Dosing Weight 59.091, kg, Start date: 04/18/18 22:38:00 CDT, Stop date: 04/18/18 22:38:00 CDT Notes: WASTE: F/P - Sink; E - Municipal Trash Bin Start Date: 04/18/18 Stop Date: 04/19/18 Status: Completed morphine Sulfate 12 mg, 6 mL, Route: PO, Drug form: SOLN, Q4H, Dosing Weight 59.091, kg, PRN Pain Score 7-10, Start date: 04/19/18 0:55:00 CDT, Duration: 30 day, Stop date: 04/30 09/15 0:54:00 CDT Notes: (Same as:MORPhine Sulfate) Start Date: 04/19/18 Stop Date: 04/19/18 Status: Discontinued morphine Sulfate 4 mg, 1 mL, Route: IVP, Drug form: SOLN, ONCE, Dosing Weight 59.091, kg, Priorit y: STAT, Start date: 04/18/18 21:50:00 CDT, Stop date: 04/18/18 21:50:00 CDT Notes: (Same as:MORPhine Sulfate) Start Date: 04/18/18 Stop Date: 04/18/18 Status: Completed morphine Sulfate 15 mg, 1 tab, Route: PO, Drug form: TAB, Q4H, Dosing Weight 51.875, kg, PRN Pain Score 7-10, Start date: 04/19/18 13:34:00 CDT, Duration: 30 day, Stop date: 13:33:00 CDT Notes: (Same as:MORPhine Sulfate) Start Date: 04/19/18 Stop Date: 04/21/18 Status: Discontinued morphine Sulfate 2 mg, 0.5 mL, Route: IVP, Drug form: SOLN, Q4H, Dosing Weight 51.875, kg, PRN Pa in Score 7-10, Start date: 04/19/18 4:46:00 CDT, Duration: 30 day, Stop date: 4:45:00 CDT Notes: (Same as:MORPhine Sulfate) Start Date: 04/19/18 Stop Date: 04/19/18 Status: Discontinued morphine Sulfate 4 mg, Route: IVP, ONCE, Dosing Weight 59.091, kg, Priority: STAT, Start date: 18:28:00 CDT, Stop date: 04/18/18 18:28:00 CDT Start Date: 04/18/18 Stop Date: 04/18/18 Status: Completed morphine Sulfate 12 mg, 6 mL, Route: PO, Drug form: SOLN, Q4H, Dosing Weight 59.091, kg, PRN Pain Score 7-10, Start date: 04/18/18 23:46:00 CDT, Duration: 30 day, Stop date: 23:45:00 CDT Notes: (Same as:MORPhine Sulfate) Start Date: 04/18/18 Stop Date: 04/19/18 Status: Discontinued Nicoderm C-Q 21 mg, 1 patch, Route: TOP, Drug form: ERFILM, Daily, Dosing Weight 51.875, kg, Start date: 04/19/18 9:00:00 CDT, Duration: 30 day, Stop date: 05/18/18 9:00:00 CDT Notes: (Same as: Habitrol)"Remove old patch before application of new patch"WAST E: F/P - P Waste Black; E - P Waste Black Start Date: 04/19/18 Stop Date: 04/21/18 Status: Discontinued [place] 10/325 oral tablet 1 tab, PO, Q6H, 0 Refill(s) Start Date: 04/21/18 Status: Ordered [place] 10/325 oral tablet 1 tab, Route: PO, Drug Form: TAB, Dosing Weight 51.875, kg, Q6H, Start date: 18:00:00 CDT, Duration: 30 day, Stop date: 05/19/18 12:00:00 CDT Notes: Do not exceed 4gm/day of acetaminophen. (Same as: [place] 325/10) Start Date: 04/19/18 Stop Date: 04/21/18 Status: Discontinued ondansetron 4 mg, 1 tab, Route: PO, Drug form: TABDIS, Q6H, Dosing Weight 59.091, kg, PRN Na usea & Vomiting, Start date: 04/18/18 23:46:00 CDT, Duration: 30 day, Stop date: 05/18/18 23:45:00 CDT Notes: (Same as: Zofran ODT) Start Date: 04/18/18 Stop Date: 04/21/18 Status: Discontinued pneumococcal 23-valent vaccine 0.5 mL, Route: IM, Drug Form: INJ, ONCALL, Start date: 04/19/18 2:51:42 CDT, Sto p date: 05/19/18 2:46:42 CDT Notes: (Same as: Pneumovax 23) Refrigerate Start Date: 04/19/18 Stop Date: 04/21/18 Status: Canceled potassium chloride 10 mEq, 100 mL, Route: IVPB, Drug form: INJ, Q1H, Dosing Weight 59.091, kg, Tota l Dose=40 meq, Start date: 04/18/18 23:00:00 CDT, Duration: 4 doses or times, St op date: 04/19/18 2:00:00 CDT, Peripheral Line Notes: Infuse at a rate of 10 mEq/hr.(Same as: KCL) Start Date: 04/18/18 Stop Date: 04/19/18 Status: Completed potassium chloride 20 mEq oral tablet, extended release 40 mEq, 2 tab, Route: PO, Drug form: ERTAB, ONCE, Dosing Weight 59.091, kg, Prio rity: STAT, Start date: 04/18/18 22:37:00 CDT, Stop date: 04/18/18 22:37:00 CDT Notes: (Same as: K-Dur 20)"Do Not Crush"For patients unable to swallow tablet, d issolve in one half glass of water. Allow about 2 minutes for the tablets to dis integrate. Stir before giving to prepare slurry and administer.Please exclude Pa tients with feeding tube less than 14 Belgian (Dobhoff, J-tube etc) and pediat shubham and patients. With food and full glass of water Start Date: 04/18/18 Stop Date: 04/19/18 Status: Completed Saline Flush 0.9% 10 mL, Route: IVP, Drug Form: INJ, Dosing Weight 59.091, kg, PRN, PRN Line Flush , Start date: 04/18/18 18:25:00 CDT, Duration: 30 day, Stop date: 05/18/18 18:24 :00 CDT Notes: (Same as: BD Posiflush) Start Date: 04/18/18 Stop Date: 04/21/18 Status: Discontinued Saline Flush 0.9% 10 ml, Route: IVP, Drug Form: INJ, Dosing Weight 59.091, kg, PRN, PRN Line Flush , Start date: 04/18/18 23:46:00 CDT, Duration: 30 day, Stop date: 05/18/18 23:45 :00 CDT Notes: (Same as: BD Posiflush) Start Date: 04/18/18 Stop Date: 04/21/18 Status: Discontinued Tums 500 mg, 1 tab, Route: CHEW, Drug form: CHEWTAB, TID, Dosing Weight 51.875, kg, P RN Indigestion, Start date: 04/19/18 5:57:00 CDT, Duration: 30 day, Stop date: 0 05/19/18 5:56:00 CDT Notes: (Same As: Tums)Calcium Carbonate 500 ct=815 mg elemental calcium Dose=_ mg calcium carbonate ( mg elemental calcium) Start Date: 04/19/18 Stop Date: 04/21/18 Status: Discontinued Ultram 50 mg oral tablet 50 mg=1 tab, PO, Q4H, PRN pain, X 3 day, # 20 tab, 0 Refill(s) Start Date: 04/21/18 Stop Date: 04/24/18 Status: Completed vancomycin + Dextrose 5% in Water IV 250 mL 1,000 mg, Route: IVPB, [id number], Dosing Weight 59.091, kg, Start date: 04/19/18 0 :00:00 CDT, Duration: 5 day, Stop date: 04/23/18 11:00:00 CDT, ABX Indication: S kin/Soft Tissue Infection Notes: TIME CRITICAL MEDICATION(Same As: Vancocin)Infusion rate< 1000 mg: infuse over 1 [id number] - 1500 mg: infuse over 1.5 [id number] - 2000 mg: infuse over 2 hours> 2001 mg: infuse over 2.5 hoursFor adult patients only: Round to nearest 250 mg per Medical Staff approval MEDICATION WASTE Product Size: 1000 mgProduct Wasted: ___ mg Start Date: 04/19/18 Stop Date: 04/20/18 Status: Discontinued vancomycin + Dextrose 5% in Water IV 250 mL 1,000 mg, Route: IVPB, ONCE, Dosing Weight 59.091, kg, Priority: STAT, Start ebonie e: 04/18/18 22:36:00 CDT, Stop date: 04/18/18 22:36:00 CDT, ABX Indication: Othe r (specify in Comments) Notes: TIME CRITICAL MEDICATION(Same As: Vancocin)Infusion rate< 1000 mg: infuse over 1 [id number] - 1500 mg: infuse over 1.5 [id number] - 2000 mg: infuse over 2 hours> 2001 mg: infuse over 2.5 hoursFor adult patients only: Round to nearest 250 mg per Medical Staff approval MEDICATION WASTE Product Size: 1000 mgProduct Wasted: ___ mg Start Date: 04/18/18 Stop Date: 04/19/18 Status: Completed vancomycin 750 mg + Dextrose 5% in Water IV 250 mL Route: IVPB, Drug form: PDR/INJ, [id number], Start date: 04/20/18 15:00:00 CDT, Dur ation: 3 day, Stop date: 04/23/18 3:00:00 CDT, ABX Indication: Skin/Soft Tissue Infection Notes: TIME CRITICAL MEDICATION(Same As: Vancocin)For adult patients only: Round to nearest 250 mg per Medical Staff approval Start Date: 04/20/18 Stop Date: 04/20/18 Status: Discontinued Vitamin B12 1,000 microgram, 1 mL, Route: IM, Drug form: INJ, ONCE, Dosing Weight 51.875, kg , Start date: 04/19/18 13:31:00 CDT, Stop date: 04/19/18 13:31:00 CDT Notes: (Same As: Vitamin B12) Start Date: 04/19/18 Stop Date: 04/19/18 Status: Completed Xanax 0.25 mg oral tablet 0.25 mg, 1 tab, Route: PO, Drug form: TAB, Q6H, Dosing Weight 51.875, kg, PRN An xiety, Start date: 04/20/18 0:02:00 CDT, Duration: 30 day, Stop date: 05/20/18 0 :01:00 CDT Notes: With food or milk(Same as: Xanax) Start Date: 04/20/18 Stop Date: 04/21/18 Status: Discontinued Zosyn + Sodium Chloride 0.9% IV 100 mL 3.375 gm, Route: IVPB, ONCE, Dosing Weight 59.091, kg, Priority: STAT, Start ebonie e: 04/18/18 22:36:00 CDT, Stop date: 04/18/18 22:36:00 CDT, ABX Indication: Othe r (specify in Comments) Notes: (Same as: Zosyn)Dosing based on Piperacillin component MEDICATION [place] DEREK Product Size: 3375 mgProduct Wasted: ___ mg Start Date: 04/18/18 Stop Date: 04/19/18 Status: Completed Results ELECTROLYTES Most recent to 1 2 oldest [Reference Range]: Sodium Lvl [135-145 146 mEq/L 144 mEq/L mEq/L] *HI* (04/18/18 9:11 PM) (04/19/18 3:48 AM) Potassium Lvl 3.1 mEq/L 2.7 mEq/L 1 [3.5-5.1 mEq/L] *LOW* *CRIT* (04/19/18 3:48 AM) (04/18/18 9:11 PM) Chloride Lvl [95-109 118 mEq/L 117 mEq/L mEq/L] *HI* *HI* (04/19/18 3:48 AM) (04/18/18 9:11 PM) CO2 [24-32 mEq/L] 17 mEq/L 16 mEq/L *LOW* *LOW* (04/19/18 3:48 AM) (04/18/18 9:11 PM) AGAP [10.0-20.0 14.1 mEq/L 13.7 mEq/L mEq/L] (04/19/18 3:48 AM) (04/18/18 9:11 PM) 1Result Comment: Critical Result(s) called to Terry at 04/18/2018 22:15 by brenda. Read back OK. CHEM PANEL Most recent to 1 2 oldest [Reference Range]: Creatinine Lvl 0.66 mg/dL 0.70 mg/dL [0.50-1.40 mg/dL] (04/19/18 3:48 AM) (04/18/18 9:11 PM) eGFR 102 mL/min/1.73m2 1 100 mL/min/1.73m2 2 *NA* *NA* (04/19/18 3:48 AM) (04/18/18 9:11 PM) BUN [7-22 mg/dL] 7 mg/dL 6 mg/dL (04/19/18 3:48 AM) *LOW* (04/18/18 9:11 PM) B/C Ratio [6-25] 11 9 (04/19/18 3:48 AM) (04/18/18 9:11 PM) Glucose Lvl [70-99 95 mg/dL 95 mg/dL mg/dL] (04/19/18 3:48 AM) (04/18/18 9:11 PM) Total Protein 5.3 g/dL 5.2 g/dL [6.4-8.4 g/dL] *LOW* *LOW* (04/19/18 3:48 AM) (04/18/18 9:11 PM) Albumin Lvl [3.5-5.0 2.2 g/dL 2.3 g/dL g/dL] *LOW* *LOW* (04/19/18 3:48 AM) (04/18/18 9:11 PM) Globulin [2.7-4.2 3.1 g/dL 2.9 g/dL g/dL] (04/19/18 3:48 AM) (04/18/18 9:11 PM) A/G Ratio [0.7-1.6] 0.7 0.8 (04/19/18 3:48 AM) (04/18/18:11 PM) Calcium Lvl 7.4 mg/dL 7.2 mg/dL [8.5-10.5 mg/dL] *LOW* *LOW* (04/19/18 3:48 AM) (04/18/18 9:11 PM) ALT [0-65 unit/L] 19 unit/L 20 unit/L (04/19/18 3:48 AM) (04/18/18 9:11 PM) AST [0-37 unit/L] 21 unit/L 21 unit/L (04/19/18 3:48 AM) (04/18/18 9:11 PM) Alk Phos [39-136 77 unit/L 83 unit/L unit/L] (04/19/18 3:48 AM) (04/18/18 9:11 PM) LDH [98-192 unit/L] 252 unit/L *HI* (04/19/18 9:20 PM) Bili Total [0.2-1.3 0.3 mg/dL 0.1 mg/dL mg/dL] (04/19/18 3:48 AM) *LOW* (04/18/18 9:11 PM) Lactic Acid Lvl 1.8 mMol/L [0.5-2.2 mMol/L] (04/18/18 9:11 PM) Procalcitonin Lvl 87.53 ng/mL 3 [0.00-0.10 ng/mL] *CRIT* (04/18/18 9:11 PM) 1Result Comment: The eGFR is calculated using the [...] from the National Kidney Disease Education Program ( NKDEP) which additionally recommends that when the eGFR is used in patients with extremes of body mass index for purposes of drug dosing, the eGFR should be mul tiplied by the estimated BMI. 2Result Comment: The eGFR is calculated using the [...] from the National Kidney Disease Education Program ( NKDEP) which additionally recommends that when the eGFR is used in patients with extremes of body mass index for purposes of drug dosing, the eGFR should be mul tiplied by the estimated BMI. 3Result Comment: Critical Result(s) called to Terry at 04/18/2018 22:32 by brenda. Read back OK. CARDIAC ENZYMES Most recent to 1 oldest [Reference Range]: Total CK [12-191 49 unit/L unit/L] (04/18/18 9:11 PM) Troponin-I <0.02 ng/mL [0.00-0.40 ng/mL] (04/18/18 9:11 PM) ANEMIA STUDY Most recent to 1 oldest [Reference Range]: Vitamin B12 Lvl 318 pg/mL [254-1320 pg/mL] (04/19/18 3:48 AM) Folate Lvl [>=3.0 8.4 ng/mL ng/mL] (04/19/18 3:48 AM) DRUG SCREEN Most recent to 1 2 oldest [Reference Range]: U Amph Scr Negative [Negative] *NA* (04/20/18 4:29 AM) U Ludy Scr Negative [Negative] *NA* (04/20/18 4:29 AM) U Benzodiaz Scr Negative [Negative] *NA* (04/20/18 4:29 AM) U Cannab Scr Negative [Negative] *NA* (04/20/18 4:29 AM) U Cocaine Scr Negative [Negative] *NA* (04/20/18 4:29 AM) U Methadone Scr Negative [Negative] *NA* (04/20/18 4:29 AM) U Opiate Scr Positive [Negative] *ABN* (04/20/18 4:29 AM) U Phencyclidine Scr Negative [Negative] *NA* (04/20/18 4:29 AM) U Propoxyph Scr Negative [Negative] *NA* (04/20/18 4:29 AM) UDS Note See Note (04/20/18 4:29 AM) TOXICOLOGY Most recent to 1 2 oldest [Reference Range]: Vanco Tr TND 10:30 *NA* (04/20/18 10:49 AM) Vanco Tr 23.8 ug/ml *NA* (04/20/18 10:49 AM) URINE AND STOOL Most recent to 1 2 oldest [Reference Range]: UA Turbidity [Clear] Clear (04/18/18 9:57 PM) UA Color Ltyellow *NA* (04/18/18 9:57 PM) UA pH [5.0-8.0] 6.0 (04/18/18 9:57 PM) UA Spec Grav 1.012 [<=1.030] (04/18/18 9:57 PM) UA Glucose [Negative Negative mg/dL mg/dL] *NA* (04/18/18 9:57 PM) UA Blood [Negative] Negative (04/18/18 9:57 PM) UA Ketones [Negative Negative mg/dL mg/dL] *NA* (04/18/18 9:57 PM) UA Protein [Negative Negative mg/dL mg/dL] (04/18/18 9:57 PM) UA Urobilinogen <=1.0 mg/dL [0.1-1.0 mg/dL] *NA* (04/18/18 9:57 PM) UA Bili [Negative] Negative *NA* (04/18/18 9:57 PM) UA Leuk Est Negative [Negative] (04/18/18 9:57 PM) UA Nitrite Negative [Negative] (04/18/18 9:57 PM) UA WBC [0-5 /HPF] 1 /HPF (04/18/18 9:57 PM) UA Sq Epi [Few /LPF] Occasional /LPF *NA* (04/18/18 9:57 PM) IMMUNOLOGY Most recent to 1 2 oldest [Reference Range]: CRP [<=2.9 mg/L] <2.9 mg/L (04/19/18 9:20 PM) HEMATOLOGY Most recent to 1 2 oldest [Reference Range]: WBC [3.7-10.4 K/CMM] 6.5 K/CMM 5.5 K/CMM (04/19/18 3:48 AM) (04/18/18 9:11 PM) RBC [4.20-5.40 2.00 M/CMM 2.31 M/CMM M/CMM] *LOW* *LOW* (04/19/18 3:48 AM) (04/18/18 9:11 PM) Hgb [12.0-16.0 g/dL] 8.4 g/dL 9.3 g/dL *LOW* *LOW* (04/19/18 3:48 AM) (04/18/18 9:11 PM) Hct [36.0-48.0 %] 25.3 % 28.9 % *LOW* *LOW* (04/19/18 3:48 AM) (04/18/18 9:11 PM) MCV [80.0-98.0 fL] 126.1 fL 125.5 fL *HI* *HI* (04/19/18 3:48 AM) (04/18/18 9:11 PM) MCH [27.0-31.0 pg] 41.9 pg 40.2 pg *HI* *HI* (04/19/18 3:48 AM) (04/18/18 9:11 PM) MCHC [32.0-36.0 33.2 g/dL 32.1 g/dL g/dL] (04/19/18 3:48 AM) (04/18/18 9:11 PM) RDW [11.5-14.5 %] 15.6 % 15.5 % *HI* *HI* (04/19/18 3:48 AM) (04/18/18 9:11 PM) MPV [7.4-10.4 fL] 8.2 fL 8.1 fL (04/19/18 3:48 AM) (04/18/18 9:11 PM) Platelet [133-450 271 K/CMM 351 K/CMM K/CMM] (04/19/18 3:48 AM) (04/18/18 9:11 PM) Segs [45.0-75.0 %] 56.2 % 43.5 % (04/19/18 3:48 AM) *LOW* (04/18/18 9:11 PM) Lymphocytes 30.2 % 42.9 % [20.0-40.0 %] (04/19/18 3:48 AM) *HI* (04/18/18 9:11 PM) Monocytes [2.0-12.0 11.6 % 11.1 % %] (04/19/18 3:48 AM) (04/18/18 9:11 PM) Eosinophils [0.0-4.0 0.7 % 0.7 % %] (04/19/18 3:48 AM) (04/18/18 9:11 PM) Basophils [0.0-1.0 1.3 % 1.8 % %] *HI* *HI* (04/19/18 3:48 AM) (04/18/18 9:11 PM) Neutrophils # 3.6 K/CMM 2.4 K/CMM [1.5-8.1 K/CMM] (04/19/18 3:48 AM) (04/18/18 9:11 PM) Lymphocytes # 2.0 K/CMM 2.4 K/CMM [1.0-5.5 K/CMM] (04/19/18 3:48 AM) (04/18/18 9:11 PM) Monocytes # [0.0-0.8 0.8 K/CMM 0.6 K/CMM K/CMM] (04/19/18 3:48 AM) (04/18/18 9:11 PM) Basophils # [0.0-0.2 0.1 K/CMM 0.1 K/CMM K/CMM] (04/19/18 3:48 AM) (04/18/18 9:11 PM) RBC Morph See Note (04/18/18 9:11 PM) Macrocyte [None 3+ 3+ Seen] *NA* *NA* (04/19/18 3:48 AM) (04/18/18 9:11 PM) Plt Morph Normal (04/18/18 9:11 PM) PT [12.0-14.7 13.2 seconds seconds] (04/18/18 9:11 PM) INR [0.85-1.17] 1.00 (04/18/18 9:11 PM) PTT [22.9-35.8 27.7 seconds seconds] (04/18/18 9:11 PM) Immunizations Given and Recorded Vaccine Date Status Refusal Reason tetanus-diphtheria toxoids 03/14/14 Given tetanus-diphtheria toxoids 06/14/13 Given Procedures Procedure Date Related Diagnosis Body Site Status Abdominal wall operations1 Completed section Completed Hand repair Completed 1ectopic preg Social History Social History Type Response Substance Abuse Use: None. Alcohol Past, Type Beer. Smoking Status Current every day smoker; Type: Cigarettes; Ready to change: No; Concerns about tobacco use in household: No; Exposure to Tobacco Smoke None; Cigarette Smoking Last 365 Days Yes; Reg Smoking Cessation Counseling Yes entered on: 04/18/18 Assessment and Plan Extracted from: Title: Clinical Document Author: Herman Nichols MD Date: 04/21/18 INFECTIOUS DISEASES PROGRESS NOTE HERMAN NICHOLS M.D. Reason For Follow up: Right foot pain swelling SUBJECTIVE: Seen and examined. Events noted. Allergies (2) ActiveReaction fentaNYLNone Documented ToradolNone Documented VITAL SIGNS: VitalsTmp(F)[id number] 04/21 04:[id number]--- 04/21 00:[id number]--- 04/20 19:[id number]--- 04/20 15:5198.148188/80--100--- 04/20 12:0097.12753/56--100--- 24 Hr Tmax: 98.2F (36.78c) at 04/20 15:51Vital Signs are the last 5 in the past 48 hours. Input/Output RecordInOutBal 03/2324hr Tot 353 0 353 03/2224hr Tot 712 0 712 Lines and catheters: MEDICATIONS: Scheduled Meds (7): 04/19/18 acetaminophen-hydrocodone ([place] 10/325 oral tablet) 1 tab PO Q6H 04/19/18 cefepime + Sodium Chloride 0.9% IV 100 mL 1 gm IVPB [id number] 25 ml/hr 04/19/18 docusate 100 mg PO BID 04/20/18 folic acid 1 mg PO Daily 04/20/18 lisinopril 20 mg PO Daily 04/19/18 nicotine (Nicoderm C-Q) 21 mg TOP Daily 04/20/18 vancomycin 750 mg + Dextrose 5% in Water IV 250 mL 750 mg IVPB [id number] 250 ml/hr ROS: NAD PHYSICAL EXAMINATION: GEN: awake alert HEENT: no thrush mucosa moist no ulcer no scleral icterus NECK:supple HEART: RRR S1 and S2 no murmur or gallop LUNG: CTAB to auscaultate and purcussion GI: soft NT/ND BS +ve EXT: clubing, cyanosis edema LABORATORY DATA: Labs (Last four charted values) WBC 6.5(APR 19)5.5(APR 18) Hgb L 8.4(APR 19)L 9.3(APR 18) Hct L 25.3(APR 19)L 28.9(APR 18) Plt 271(APR 19)351(APR 18) Na H 146(APR 19)144(APR 18) K L 3.1(APR 19)C 2.7(APR 18) CO2 L 17(APR 19)L 16(APR 18) Cl H 118(APR 19)H 117(APR 18) Cr 0.66(APR 19)0.70(APR 18) BUN 7(APR 19)L 6(APR 18) Glucose Random 95(APR 19)95(APR 18) Ca L 7.4(APR 19)L 7.2(APR 18) PT 13.2(APR 18) INR 1.00(APR 18) PTT 27.7(APR 18) Troponin <0.02(APR 18) Total CK 49(APR 18) CULTURES: DATE/SOURCE/RESULT/ SENSITIVITIES: IMAGING: ASSESMENT AND PLAN: 52-year-old female with 1. Right foot pain and swelling 2. Fractures 3. Suspected osteomyelitis 4. Pain syndrome Acute and subacute fractures -no need for any antibiotics No evidence of osteomyelitis DC all antibiotic ANTIMICROBIALS: off abx ID follow up on discharge call Dr Nichols [phone] Extracted from: Title: Clinical Document Author: Herman Nichols MD Date: 04/19/18 INFECTIOUS DISEASES CONSULTATION NOTE Herman Nichols M.D. Attending: Alejandro Contreras MDPhone: Service: Internal Medicine Code status: None Specified=FULL CODE Reason for Admission: HYPOKALEMIA, FOOT INFECTION, OSTEOMYELITIS Working DRG: Isolation: No Isolation/Standard Precautions Consulting Physicians: Yogi Michele MDOffice: Service: Medicine, Neurology Keturah Nichols MDOffice: service: Infectious Disease, Medicine Herman Nichols MDOffice: Service: Infectious Disease Amador Marcelo MDOffice: Service: Medicine Yossi Fletcher DPMOffice: service: Orthopedic Surgery HPI: This is a 52-year-old female who is a known past medical history significant for peripheral vascular disease hypertension and history of previous amputation who presented to [facility] with swelling of her right foot That showed a white count of 6.5 pro calcitonin came back 87.53 further workup in the hospital showed a temp of 98.5 she underwent further blood work she underwent diagnostic workup consisting of foot x-ray showed subacute fracture of second third metatarsal neck changes of underlying ostium mellitus may also be considered. Infectious diseases consultation was called to give recommendation. She underwent MR foot without contrast which is in progress. PAST MEDICAL HISTORY: Pain syndrome, hypertension, peripheral vascular disease, previous amputation. SURGICAL HISTORY: Abdominal wall operations Hand repair section FAMILY HISTORY: No qualifying data available Allergies (2) ActiveReaction [id number] documented ToradolNone documented SOCIAL HISTORY: Alcohol Details: Past, Type Beer. Tobacco Details: Use: Current every day smoker. Type: Cigarettes. Ready to change: No. Household tobacco concerns: No. Tobacco smoke exposure: None. Did the Patient Smoke Cigarettes Anytime During the Last 365 Days? Yes. Cessation Counseling Provided? Yes. Substance Abuse Details: Use: None. ROS: (negative) Other than symptoms attributable to the present illness and past history as described above, general review of systems is otherwise negative. GENERAL: No change in appetite, energy or weight. No fever, chills or sweats. HEENT: No auditory or visual complaints. No tinnitus. No pharyngeal complaints RESPIRATORY: [place], SOB. CARDIOVASCULAR: No chest pain or pressure. No palpitations GASTROINTESTINAL: No dysphagia, odynophagia, heartburn, diarrhea or constipation. No nausea or vomiting. MUSCULOSKELETAL: No myalgias, arthralgias, joint swelling. NEUROLOGICAL: No vertigo or disturbance of balance or coordination.No motor or sensory complaints. No headache. GENITOURINARY: No dysuria, urgency or urinary frequency. No incontinence. DERMATOLOGIC: No complaint of skin lesions or rashes. No change MEDICATIONS: Scheduled Meds (7): 04/19/18 acetaminophen-hydrocodone ([place] 10/325 oral tablet) 1 tab PO Q6H 04/19/18 cefepime + Sodium Chloride 0.9% IV 100 mL 1 gm IVPB [id number] 25 ml/hr 04/19/18 docusate 100 mg PO BID 04/20/18 folic acid 1 mg PO Daily 04/20/18 lisinopril 20 mg PO Daily 04/19/18 nicotine (Nicoderm C-Q) 21 mg TOP Daily 04/19/18 vancomycin + Dextrose 5% in Water IV 250 mL 1,000 mg IVPB [id number] 250 ml/hr VITAL SIGNS: VitalsTmp(F)[id number] 04/19 16:[id number]/78--99--- 04/19 11:5397.537690/68--100--- 04/19 08:[id number]/75--99--- 04/19 04:[id number]--- 04/19 02:[id number]--- 24 Hr Tmax: 98.5F (36.94c) at 04/19 01:53Vital Signs are the last 5 in the past 48 hours. PHYSICAL EXAMINATION: GENERAL: Well-developed, well-nourished in no apparent distress. SKIN: Warm and dry with good color. No rash. No tissue breakdown, bleeding or bruising. HEENT: Head is normocephalic and atraumatic. PERRLA, EOMI, NECK: Supple. No carotid bruits. No lymphadenopathy or thyromegaly. CHEST: Symmetrical with equal expansion. LUNGS: CTA HEART: RRR, no murmurs. . GASTROINTESTINAL: Bowel sounds are normal. Soft, NT, ND. No guarding or rebound tenderness. EXTREMITIES: No edema or varicosities. Pulses 2+ symmetric. NEUROLOGIC: Cranial nerves II through XII are grossly intact. LABS: Labs (Last four charted values) WBC 6.5(APR 19)5.5(APR 18) Hgb L 8.4(APR 19)L 9.3(APR 18) Hct L 25.3(APR 19)L 28.9(APR 18) Plt 271(APR 19)351(APR 18) Na H 146(APR 19)144(APR 18) K L 3.1(APR 19)C 2.7(APR 18) CO2 L 17(APR 19)L 16(APR 18) Cl H 118(APR 19)H 117(APR 18) Cr 0.66(APR 19)0.70(APR 18) BUN 7(APR 19)L 6(APR 18) Glucose Random 95(APR 19)95(APR 18) Ca L 7.4(APR 19)L 7.2(APR 18) PT 13.2(APR 18) INR 1.00(APR 18) PTT 27.7(APR 18) Troponin <0.02(APR 18) Total CK 49(APR 18) CULTURES: DATE/SOURCE/RESULT/ SENSITIVITIES: IMAGING: ASSESMENT AND PLAN: 52-year-old female with 1. Right foot pain and swelling 2. Fractures 3. Suspected osteomyelitis 4. Pain syndrome RECOMMENDATIONS: As per infectious disease standpoint patient seen and evaluated continue to follow closely will review the MRI results as well as inflammatory markers and give further recommendation. We will continue to follow. Thank you for providing me the opportunity to take care of this patient.
--- OUTSIDE RECORDS SUMMARY | 2018-12-04 07:18 | XMS REPORT | CCD ---
Author Author Auto Generated Organization [facility] Address Unknown Phone Unavailable Care Team Providers Care Assembling Machine Operator Name Role Phone Darnell Seymour CP Allergies, Adverse Reactions, Alerts Substance Reaction Status NKDA Active Medications Medication Instructions Start Date End Date Status [place] 5/325 oral 1 tab, Route: PO, Drug Form: TAB, 06/14/2013 06/14/2013 Completed tablet Dosing Weight 55.455, kg, ONCE, PRN Pain, Start date: 06/14/13 20:10:00 Augmentin 875 mg 875 mg, PO, BID, 20 tab, 06/14/2013 06/24/2013 Ordered oral tablet Substitution Allowed, Maintenance [place] 5/325 oral 1 - 2 TABS, PO, [...]
--- OUTSIDE RECORDS SUMMARY | 2018-12-04 07:18 | XMS REPORT | CCD ---
Author Author Auto Generated Organization [facility] Address Unknown Phone Unavailable Care Team Providers Care Youth Care Worker Name Role Phone Abelardo Monae CP Allergies, [...]
--- OUTSIDE RECORDS SUMMARY | 2018-12-04 07:18 | XMS REPORT | CCD ---
Author Author Auto Generated Organization [facility] Address Unknown Phone Unavailable Care Team Providers Care Home Care Assistant Name Role Phone Darnell Seymour CP Allergies, Adverse Reactions, Alerts Substance Reaction Status NKDA Active Medications Medication Instructions Start Date End Date Status [place] 5/325 oral 1 tab, Route: PO, Drug Form: TAB, 06/14/2013 06/14/2013 Completed tablet Dosing Weight 55.455, kg, ONCE, PRN Pain, Start date: 06/14/13 20:10:00 Augmentin 875 mg 875 mg, PO, BID, 20 tab, 06/14/2013 06/24/2013 Ordered oral tablet Substitution Allowed, Maintenance [place] 5/325 oral 1 - 2 TABS, PO, [...] mmHg] 110 mmHg (06/14/2013 21:21:00) 133 mmHg (06/14/2013 19:25:00) Diastolic Blood Pressure [60-90 mmHg] 75 mmHg (06/14/2013 21:21:00) 90 mmHg (06/14/2013 19:25:00) Respiratory Rate [14-20 BRMIN] 18 BRMIN (06/14/2013:21:00) 18 BRMIN (06/14/2013 19:25:00) Peripheral Pulse Rate [60-100 bpm] 98 bpm (06/14/2013:21:00) 100 bpm (06/14/2013 19:25:00) Weight 55.455 kg (06/14/2013 19:25:00) Procedures Procedures Date Related Diagnosis Administration of Diphtheria Toxoid 06/14/2013 00:00:00 Administration of Tetanus Toxoid 06/14/2013 00:00:00 Emergency department visit for the evaluation and management 06/14/2013 00:00:00 of a patient, which requires these 3 arguelles components: An expanded problem focused history; An expanded problem focused examination; and Medical decision making of moderate complexity. Counseling Immunization administration (includes percutaneous, 06/14/2013 00:00:00 intradermal, subcutaneous, or intramuscular injections); 1 vaccine (single or combination vaccine/toxoid)
--- OUTSIDE RECORDS SUMMARY | 2018-12-04 07:18 | XMS REPORT | CCD ---
Author Author Auto Generated Organization [facility] Address Unknown Phone Unavailable Care Team Providers Care Transfer Specialist Name Role Phone Abelardo Monae CP Allergies, [...]
--- OUTSIDE RECORDS SUMMARY | 2018-12-04 07:18 | XMS REPORT | CCD ---
Author Author Auto Generated Organization [facility] Address Unknown Phone Unavailable Care Team Providers Care Automatic Machines Supervisor Name Role Phone Darnell Seymour CP Allergies, Adverse Reactions, Alerts Substance Reaction Status NKDA Active Medications Medication Instructions Start Date End Date Status [place] 5/325 oral 1 tab, Route: PO, Drug Form: TAB, 06/14/2013 06/14/2013 Completed tablet Dosing Weight 55.455, kg, ONCE, PRN Pain, Start date: 06/14/13 20:10:00 Augmentin 875 mg 875 mg, PO, BID, 20 tab, 06/14/2013 06/24/2013 Ordered oral tablet Substitution Allowed, Maintenance [place] 5/325 oral 1 - 2 TABS, PO, [...]
--- OUTSIDE RECORDS SUMMARY | 2018-12-04 07:19 | XMS REPORT | Summary of Care ---
Author Author [facility] Organization [facility] Address Unknown Phone Unavailable Encounter LISA Braswell(MORRIS) [id number] Date(s): 08/12/15 - 08/12/15 [facility] [address] [place] [address]- [phone] Discharge Diagnosis: Pain in right hip Discharge Disposition: Home Attending Physician: Tomás Clements MD Vital Signs Most recent to 1 2 oldest [Reference Range]: Height 165.1 cm (08/12/15 9:45 AM) Temperature Oral 98.0 DegF 97.9 DegF [96.4-99.1 DegF] (08/12/15 10:41 AM) (08/12/15 9:45 AM) Blood Pressure 132/92 mmHg 126/86 mmHg [90-140/60-90 mmHg] (08/12/15 10:41 AM) (08/12/15 9:45 AM) Respiratory Rate 20 BRMIN 18 BRMIN [14-20 BRMIN] (08/12/15 10:41 AM) (08/12/15 9:45 AM) Peripheral Pulse 91 bpm 108 bpm Rate [60-100 bpm] (08/12/15 10:41 AM) *HI* (08/12/15 9:45 AM) Weight 56.818 kg (08/12/15 9:45 AM) Body Mass Index 20.84 m2 (08/12/15 9:45 AM) Problem List Condition Effective Dates Status Health Status Informant Anxiety(Confirmed)1 Resolved Hypertension(Confirm Resolved ed)2 1states out of meds 2states out of meds Allergies, Adverse Reactions, Alerts Substance Reaction Severity Status NKDA Active Medications ketOROLAC 10 mg oral tablet 10 mg=1 tab, PO, Q6H, X 5 day, # 20 tab, 0 Refill(s) Start Date: 08/12/15 Stop Date: 08/17/15 Status: Ordered ketOROLAC 30 mg/mL injectable solution 60 mg, Route: IM, ONCE, Dosing Weight 56.818, kg, Start date: 08/12/15 10:08:00, Stop date: 08/12/15 10:08:00 Start Date: 08/12/15 Stop Date: 08/12/15 Status: Completed Ultram 50 mg oral tablet 50 mg=1 tab, PO, Q4H, PRN pain, X 3 day, # 20 tab, 0 Refill(s) Start Date: 08/12/15 Stop Date: 08/15/15 Status: Ordered Results No data available for this section Immunizations Vaccine Date Refusal Reason tetanus-diphtheria toxoids 03/14/14 tetanus-diphtheria toxoids 06/14/13 Procedures No data available for this section Social History Social History Type Response Alcohol Past, Type Beer. Smoking Status Current every day smoker; Type: Cigarettes; Ready to change: No; Concerns about tobacco use in household: No; Exposure to Tobacco Smoke None; Cigarette Smoking Last 365 Days Yes; Reg Smoking Cessation Counseling Yes Assessment and Plan No data available for this section
--- OUTSIDE RECORDS SUMMARY | 2018-12-04 07:19 | XMS REPORT | Summary of Care ---
Author Author [facility] Organization [facility] Address Unknown Phone Unavailable Encounter LISA Braswell(MORRIS) [id number] Date(s): 05/08/15 - 05/08/15 [facility] [address] [place] [address]- Discharge Diagnosis: Contusion of rib Discharge Disposition: Home Attending Physician: Darnell David MD Vital Signs Most recent to 1 2 oldest [Reference Range]: Temperature Oral 98.2 DegF [96.4-99.1 DegF] (05/08/15 4:20 PM) Most recent to 1 2 oldest [Reference Range]: Blood Pressure 132/76 mmHg 134/81 mmHg [90-140/60-90 mmHg] (05/08/15 6:01 PM) (05/08/15 4:20 PM) Most recent to 1 2 oldest [Reference Range]: Respiratory Rate 16 BRMIN 16 BRMIN [14-20 BRMIN] (05/08/15 6:01 PM) (05/08/15 4:20 PM) Most recent to 1 2 oldest [Reference Range]: Peripheral Pulse 54 bpm 87 bpm Rate [60-100 bpm] *LOW* (05/08/15 4:20 PM) (05/08/15 6:01 PM) Most recent to 1 2 oldest [Reference Range]: Weight 59.091 kg (05/08/15 4:20 PM) Problem List Condition Effective Dates Status Health Status Informant Anxiety(Confirmed) Resolved Hypertension(Confirm Resolved ed) Allergies, Adverse Reactions, Alerts Substance Reaction Severity Status NKDA Active Medications Lodine 300 mg oral capsule 300 mg=1 cap, PO, BID, PRN Pain, # 20 cap, 0 Refill(s) Start Date: 05/08/15 Status: Ordered [place] 10/325 oral tablet 1 tab, Route: PO, Drug Form: TAB, Dosing Weight 59.091, kg, ONCE, STAT, Start da te: 05/08/15 16:30:00, Stop date: 05/08/15 16:30:00 Start Date: 05/08/15 Stop Date: 05/08/15 Status: Completed Results No data available for this section Immunizations Vaccine Date Refusal Reason tetanus-diphtheria toxoids 03/14/14 tetanus-diphtheria toxoids 06/14/13 Procedures No data available for this section Social History Social History Type Response Alcohol Past, Type Beer. Smoking Status Current every day smoker; Type: Cigarettes; Lives with someone who smokes; Cigarette Smoking Last 365 Days Yes; Reg Smoking Cessation Counseling No Assessment and Plan No data available for this section
--- OUTSIDE RECORDS SUMMARY | 2018-12-04 07:19 | XMS REPORT | Summary of Care ---
Author Author [facility] Organization [facility] Address Unknown Phone Unavailable Encounter [facility] Alesha_paco(FIN) [id number] Date(s): 10/13/15 - 10/13/15 [facility] [address] [place] [address]- Discharge Disposition: Non-Emergent Attending Physician: Brigida Kyle DO Vital Signs Most recent to 1 oldest [Reference Range]: Height 165.1 cm (10/13/15 10:01 PM) Temperature Oral 98.2 DegF [96.4-99.1 DegF] (10/13/15 10:01 PM) Blood Pressure 133/85 mmHg [90-140/60-90 mmHg] (10/13/15 10:01 PM) Respiratory Rate 20 BRMIN [14-20 BRMIN] (10/13/15 10:01 PM) Peripheral Pulse 101 bpm Rate [60-100 bpm] *HI* (10/13/15 10:01 PM) Weight 56.364 kg (10/13/15 10:01 PM) Body Mass Index 20.68 m2 (10/13/15 10:01 PM) Problem List Condition Effective Dates Status Health Status Informant Anxiety(Confirmed)1 Resolved Hypertension(Confirm Resolved ed)2 1states out of meds 2states out of meds Allergies, Adverse Reactions, Alerts Substance Reaction Severity Status Toradol Active Medications No data available for this section Results No data available for this section [...]
--- OUTSIDE RECORDS SUMMARY | 2018-12-04 07:19 | XMS REPORT | Summary of Care ---
Author Author [facility] Organization [facility] Address Unknown Phone Unavailable Encounter LISA Braswell(MORRIS) [id number] Date(s): 09/11/15 - 09/11/15 [facility] [address] [place] [address]- Discharge Diagnosis: Arthritis Discharge Diagnosis: Chronic sciatica Discharge Disposition: Home Attending Physician: Zak Castillo MD Vital Signs Most recent to 1 oldest [Reference Range]: Height 165.1 cm (09/11/15 3:43 PM) Temperature Oral 98.0 DegF [96.4-99.1 DegF] (09/11/15 3:43 PM) Blood Pressure 104/63 mmHg [90-140/60-90 mmHg] (09/11/15 3:43 PM) Respiratory Rate 18 BRMIN [14-20 BRMIN] (09/11/15 3:43 PM) Peripheral Pulse 93 bpm Rate [60-100 bpm] (09/11/15 3:43 PM) Weight 57.273 kg (09/11/15 3:43 PM) Body Mass Index 21.01 m2 (09/11/15 3:43 PM) Problem List Condition Effective Dates Status Health Status Informant Anxiety(Confirmed)1 Resolved Hypertension(Confirm Resolved ed)2 1states out of meds 2states out of meds Allergies, Adverse Reactions, Alerts Substance Reaction Severity Status Toradol Active Medications dexamethasone 10 mg, Route: IM, ONCE, Dosing Weight 57.273, kg, Priority: STAT, Start date: 16:53:00, Stop date: 09/11/15 16:53:00 Start Date: 09/11/15 Stop Date: 09/11/15 Status: Completed Flexeril 10 mg, Route: PO, ONCE, Dosing Weight 57.273, kg, Priority: STAT, Start date: 16:52:00, Stop date: 09/11/15 16:52:00 Start Date: 09/11/15 Stop Date: 09/11/15 Status: Completed [place] 5/325 oral tablet 1 tab, Route: PO, Drug Form: TAB, Dosing Weight 57.273, kg, ONCE, STAT, Start da te: 09/11/15 16:52:00, Stop date: 09/11/15 16:52:00 Start Date: 09/11/15 Stop Date: 09/11/15 Status: Completed [place] 5/325 oral tablet 1 tab, PO, Q4H, PRN for pain, X 5 day, # 16 tab, 0 Refill(s) Start Date: 09/11/15 Stop Date: 09/16/15 Status: Ordered Ultram 50 mg oral tablet 50 mg, 1 tab, Route: PO, Drug form: TAB, ONCE, Dosing Weight 56.818, kg, Priorit y: STAT, Start date: 09/11/15 15:45:00, Stop date: 09/11/15 15:45:00 Notes: Not to exceed 400mg/day. (Same As: Ultram) Start Date: 09/11/15 Stop Date: 09/11/15 Status: Completed Results No data available for this section Immunizations Vaccine Date Refusal Reason tetanus-diphtheria toxoids 03/14/14 tetanus-diphtheria toxoids 06/14/13 Procedures No data available for this section Social History Social History Type Response Alcohol Past, Type Beer. Smoking Status Current every day smoker; Exposure to Tobacco Smoke None; Cigarette Smoking Last 365 Days No; Reg Smoking Cessation Counseling No Assessment and Plan No data available for this section
--- OUTSIDE RECORDS SUMMARY | 2018-12-04 07:19 | XMS REPORT ---
Author Author [facility] Address Unknown Phone Unavailable Care Team Providers Care Youth Corrections Officer Name Role Phone Unavailable Unavailable Payers Payer Name Policy Type Policy Number Effective Date Expiration Date Problems This patient has no known problems. Allergies, Adverse Reactions, Alerts Allergy Name Allergy Type Status Severity Reaction(s) Onset Date Inactive Date Treating Clinician Comments amphetamine DA Active SV 2018-09-19 00:00:00 dextroamphetamine DA Active SV 2018-09-19 00:00:00 lorazepam DA Active ID 2018-09-18 00:00:00 lorazepam DA Active ID 2018-08-14 00:00:00 lorazepam DA Active ID 2018-07-10 00:00:00 lorazepam DA Active MO 2018-07-03 00:00:00 lorazepam DA Active MO 2018-04-12 00:00:00 Medications This patient has no known medications. Encounters Start Date/Time End Date/Time Encounter Type Admission Type Attending Clinicians Care Facility Care Department Encounter ID 2017-05-09 16:03:35 2017-05-09 16:03:35 Outpatient [facility] [id number] 2017 15:54:23 2017 15:54:23 Outpatient [facility] [id number] 2017-04-30 17:31:17 2017-04-30 17:31:17 Outpatient [facility] [id number] Results Test Description Test Time Test Comments Text Results Atomic Results Result Comments CBC W/AUTO DIFF 2018-09-21 10:39:00 WHITE BLOOD CELL (test code=WBC) 5.05 x10 3/uL 4.5-11.0 RED BLOOD CELL (test code=RBC) 3.28 x10 6/uL 3.54-5.02 HEMOGLOBIN (test code=HGB) 10.7 g/dL 11.0-15.0 HEMATOCRIT (test code=HCT) 34.9 % 33.0-45.0 MEAN CELL VOLUME (test code=MCV) 106.4 fL 81.0-99.0 MEAN CELL HGB (test code=MCH) 32.6 pg 27.0-33.0 MEAN CELL HGB CONCETRATION (test code=MCHC) 30.7 g/dL 33.0-37.0 RED CELL DISTRIBUTION WIDTH CV (test code=RDW) 17.1 % 11.5-14.5 RED CELL DISTRIBUTION WIDTH SD (test code=RDW-SD) 66.9 fL 37.0-54.0 PLATELET COUNT (test code=PLT) 298 x10 3/uL 150-400 MEAN PLATELET VOLUME (test code=MPV) 10.6 fL 7.0-9.0 MANUAL DIFF REQUIRED (test code=MDIFF) YES WBC [id number] 10:39:00* Test Item Value Reference Range Comments SEGMENTED NEUTROPHILS (test code=SEG) 34.9 % 37-69 LYMPHOCYTE (test code=LYMPH) 55.0 % 23-55 REACTIVE LYMPH (test code=RELYMPH) 0.9 % MONOCYTE (test code=MON) 8.3 % 0-10 EOSINOPHIL (test code=EOS) 0.9 % 0.0-4.0 NUCLEATED RED BLOOD CELL (test code=NRBC) 1.8 % ANISOCYTOSIS (test code=ANISO) 2+ MACROCYTOSIS (test code=MACR) 2+ PLATELET ESTIMATE (test code=PLTEST) Adequate THOUSAND ADEQUATE PLATELET MORPHOLOGY (test code=PLTMORPH) NORMAL CBC W/AUTO [id number] 10:33:00* Test Item Value Reference Range Comments WHITE BLOOD CELL (test code=WBC) 5.05 x10 3/uL 4.5-11.0 RED BLOOD CELL (test code=RBC) 3.28 x10 6/uL 3.54-5.02 HEMOGLOBIN (test code=HGB) 10.7 g/dL 11.0-15.0 HEMATOCRIT (test code=HCT) 34.9 % 33.0-45.0 MEAN CELL VOLUME (test code=MCV) 106.4 fL 81.0-99.0 MEAN CELL HGB (test code=MCH) 32.6 pg 27.0-33.0 MEAN CELL HGB CONCETRATION (test code=MCHC) 30.7 g/dL 33.0-37.0 RED CELL DISTRIBUTION WIDTH CV (test code=RDW) 17.1 % 11.5-14.5 RED CELL DISTRIBUTION WIDTH SD (test code=RDW-SD) 66.9 fL 37.0-54.0 PLATELET COUNT (test code=PLT) 298 x10 3/uL 150-400 MEAN PLATELET VOLUME (test code=MPV) 10.6 fL 7.0-9.0 MANUAL DIFF REQUIRED (test code=MDIFF) YES WBC [id number] 10:33:00* Test Item Value Reference Range Comments ANISOCYTOSIS (test code=ANISO) PLATELET ESTIMATE (test code=PLTEST) THOUSAND ADEQUATE CBC W/AUTO [id number] 10:33:00* Test Item Value Reference Range Comments WHITE BLOOD CELL (test code=WBC) 5.05 x10 3/uL 4.5-11.0 RED BLOOD CELL (test code=RBC) 3.28 x10 6/uL 3.54-5.02 HEMOGLOBIN (test code=HGB) 10.7 g/dL 11.0-15.0 HEMATOCRIT (test code=HCT) 34.9 % 33.0-45.0 MEAN CELL VOLUME (test code=MCV) 106.4 fL 81.0-99.0 MEAN CELL HGB (test code=MCH) 32.6 pg 27.0-33.0 MEAN CELL HGB CONCETRATION (test code=MCHC) 30.7 g/dL 33.0-37.0 RED CELL DISTRIBUTION WIDTH CV (test code=RDW) 17.1 % 11.5-14.5 RED CELL DISTRIBUTION WIDTH SD (test code=RDW-SD) 66.9 fL 37.0-54.0 PLATELET COUNT (test code=PLT) 298 x10 3/uL 150-400 MEAN PLATELET VOLUME (test code=MPV) 10.6 fL 7.0-9.0 MANUAL DIFF REQUIRED (test code=MDIFF) YES WBC [id number] 10:33:00* Test Item Value Reference Range Comments ANISOCYTOSIS (test code=ANISO) PLATELET ESTIMATE (test code=PLTEST) THOUSAND ADEQUATE BASIC METABOLIC [id number] 08:21:00* Test Item Value Reference Range Comments SODIUM (test code=NA) 137 mEq/L 134-147 POTASSIUM (test code=K) 5.0 mEq/L 3.4-5.0 CHLORIDE (test code=CL) 105 mEq/L 100-108 CARBON DIOXIDE (test code=CO2) 25 mEq/L 21-33 ANION GAP (test code=GAP) 12 0-20 GLUCOSE (test code=GLU) 80 mg/dL 70-110 BLOOD UREA NITROGEN (test code=BUN) 24 mg/dL 7-18 GLOMERULAR FILTRATION RATE (test code=GFR) 104.6 90-95 Units of measure=ml/min/1.73 m2 CREATININE (test code=CREAT) 0.6 mg/dL 0.6-1.3 CALCIUM (test code=CA) 8.6 mg/dL 8.0-10.5 CBC W/AUTO [id number] 08:02:00* Test Item Value Reference Range Comments WHITE BLOOD CELL (test code=WBC) 5.05 x10 3/uL 4.5-11.0 RED BLOOD CELL (test code=RBC) 3.28 x10 6/uL 3.54-5.02 HEMOGLOBIN (test code=HGB) 10.7 g/dL 11.0-15.0 HEMATOCRIT (test code=HCT) 34.9 % 33.0-45.0 MEAN CELL VOLUME (test code=MCV) 106.4 fL 81.0-99.0 MEAN CELL HGB (test code=MCH) 32.6 pg 27.0-33.0 MEAN CELL HGB CONCETRATION (test code=MCHC) 30.7 g/dL 33.0-37.0 RED CELL DISTRIBUTION WIDTH CV (test code=RDW) 17.1 % 11.5-14.5 RED CELL DISTRIBUTION WIDTH SD (test code=RDW-SD) 66.9 fL 37.0-54.0 PLATELET COUNT (test code=PLT) 298 x10 3/uL 150-400 MEAN PLATELET VOLUME (test code=MPV) 10.6 fL 7.0-9.0 LYMPHOCYTE % (test code=LY%) % 14.0-32.0 MANUAL DIFF REQUIRED (test code=MDIFF) CBC W/AUTO [id number] 12:37:00* Test Item Value Reference Range Comments WHITE BLOOD CELL (test code=WBC) 5.27 x10 3/uL 4.5-11.0 RED BLOOD CELL (test code=RBC) 3.21 x10 6/uL 3.54-5.02 HEMOGLOBIN (test code=HGB) 10.4 g/dL 11.0-15.0 HEMATOCRIT (test code=HCT) 34.2 % 33.0-45.0 MEAN CELL VOLUME (test code=MCV) 106.5 fL 81.0-99.0 MEAN CELL HGB (test code=MCH) 32.4 pg 27.0-33.0 MEAN CELL HGB CONCETRATION (test code=MCHC) 30.4 g/dL 33.0-37.0 RED CELL DISTRIBUTION WIDTH CV (test code=RDW) 18.0 % 11.5-14.5 RED CELL DISTRIBUTION WIDTH SD (test code=RDW-SD) 71.1 fL 37.0-54.0 PLATELET COUNT (test code=PLT) 282 x10 3/uL 150-400 MEAN PLATELET VOLUME (test code=MPV) 10.1 fL 7.0-9.0 NEUTROPHIL % (test code=NT%) 37.6 % 56.0-77.0 IMMATURE GRANULOCYTE % (test code=IG%) 0.2 % 0.0-2.0 LYMPHOCYTE % (test code=LY%) 53.1 % 14.0-32.0 MONOCYTE % (test code=MO%) 8.3 % 4.8-9.0 EOSINOPHIL % (test code=EO%) 0.4 % 0.3-3.7 BASOPHIL % (test code=BA%) 0.4 % 0.0-2.0 NUCLEATED RBC % (test code=NRBC%) 0.0 % 0-0 NEUTROPHIL # (test code=NT#) 1.98 x10 3/uL 2.0-7.6 IMMATURE GRANULOCYTE # (test code=IG#) 0.01 x10 3/uL 0.00-0.03 LYMPHOCYTE # (test code=LY#) 2.80 x10 3/uL 1.0-3.8 MONOCYTE # (test code=MO#) 0.44 x10 3/uL 0.1-0.8 EOSINOPHIL # (test code=EO#) 0.02 x10 3/uL 0.0-0.2 BASOPHIL # (test code=BA#) 0.02 x10 3/uL 0.0-0.2 NUCLEATED RBC # (test code=NRBC#) 0.00 x10 3/uL 0.0-0.1 MANUAL DIFF REQUIRED (test code=MDIFF) NO SLIDE REVIEWED, CONSISTENT WITH AUTO DIFF. BASIC METABOLIC [id number] 07:48:00* Test Item Value Reference Range Comments SODIUM (test code=NA) 141 mEq/L 134-147 POTASSIUM (test code=K) 4.4 mEq/L 3.4-5.0 CHLORIDE (test code=CL) 110 mEq/L 100-108 CARBON DIOXIDE (test code=CO2) 23 mEq/L 21-33 ANION GAP (test code=GAP) 12 0-20 GLUCOSE (test code=GLU) 77 mg/dL 70-110 BLOOD UREA NITROGEN (test code=BUN) 32 mg/dL 7-18 GLOMERULAR FILTRATION RATE (test code=GFR) 87.5 90-95 Units of measure=ml/min/1.73 m2 CREATININE (test code=CREAT) 0.7 mg/dL 0.6-1.3 CALCIUM (test code=CA) 8.6 mg/dL 8.0-10.5 CBC W/AUTO [id number] 07:42:00* Test Item Value Reference Range Comments WHITE BLOOD CELL (test code=WBC) 5.27 x10 3/uL 4.5-11.0 RED BLOOD CELL (test code=RBC) 3.21 x10 6/uL 3.54-5.02 HEMOGLOBIN (test code=HGB) 10.4 g/dL 11.0-15.0 HEMATOCRIT (test code=HCT) 34.2 % 33.0-45.0 MEAN CELL VOLUME (test code=MCV) 106.5 fL 81.0-99.0 MEAN CELL HGB (test code=MCH) 32.4 pg 27.0-33.0 MEAN CELL HGB CONCETRATION (test code=MCHC) 30.4 g/dL 33.0-37.0 RED CELL DISTRIBUTION WIDTH CV (test code=RDW) 18.0 % 11.5-14.5 RED CELL DISTRIBUTION WIDTH SD (test code=RDW-SD) 71.1 fL 37.0-54.0 PLATELET COUNT (test code=PLT) 282 x10 3/uL 150-400 MEAN PLATELET VOLUME (test code=MPV) 10.1 fL 7.0-9.0 LYMPHOCYTE % (test code=LY%) % 14.0-32.0 MANUAL DIFF REQUIRED (test code=MDIFF) CBC W/AUTO [id number] 16:55:00* Test Item Value Reference Range Comments WHITE BLOOD CELL (test code=WBC) 5.05 x10 3/uL 4.5-11.0 RED BLOOD CELL (test code=RBC) 4.04 x10 6/uL 3.54-5.02 HEMOGLOBIN (test code=HGB) 13.0 g/dL 11.0-15.0 HEMATOCRIT (test code=HCT) 42.4 % 33.0-45.0 MEAN CELL VOLUME (test code=MCV) 105.0 fL 81.0-99.0 MEAN CELL HGB (test code=MCH) 32.2 pg 27.0-33.0 MEAN CELL HGB CONCETRATION (test code=MCHC) 30.7 g/dL 33.0-37.0 RED CELL DISTRIBUTION WIDTH CV (test code=RDW) 17.6 % 11.5-14.5 RED CELL DISTRIBUTION WIDTH SD (test code=RDW-SD) 68.9 fL 37.0-54.0 PLATELET COUNT (test code=PLT) x10 3/uL 150-400 SEE PLATELET ESTIMATE MEAN PLATELET VOLUME (test code=MPV) 10.9 fL 7.0-9.0 NEUTROPHIL % (test code=NT%) 46.4 % 56.0-77.0 IMMATURE GRANULOCYTE % (test code=IG%) 0.2 % 0.0-2.0 LYMPHOCYTE % (test code=LY%) 47.3 % 14.0-32.0 MONOCYTE % (test code=MO%) 5.7 % 4.8-9.0 EOSINOPHIL % (test code=EO%) 0.0 % 0.3-3.7 BASOPHIL % (test code=BA%) 0.4 % 0.0-2.0 NUCLEATED RBC % (test code=NRBC%) 0.0 % 0-0 NEUTROPHIL # (test code=NT#) 2.34 x10 3/uL 2.0-7.6 IMMATURE GRANULOCYTE # (test code=IG#) 0.01 x10 3/uL 0.00-0.03 LYMPHOCYTE # (test code=LY#) 2.39 x10 3/uL 1.0-3.8 MONOCYTE # (test code=MO#) 0.29 x10 3/uL 0.1-0.8 EOSINOPHIL # (test code=EO#) 0.00 x10 3/uL 0.0-0.2 BASOPHIL # (test code=BA#) 0.02 x10 3/uL 0.0-0.2 NUCLEATED RBC # (test code=NRBC#) 0.00 x10 3/uL 0.0-0.1 MANUAL DIFF REQUIRED (test code=MDIFF) NO PLT [id number] 16:55:00* Test Item Value Reference Range Comments PLATELET ESTIMATE (test code=PLTEST) 148-185 THOUSAND ADEQUATE PLATELET MORPHOLOGY (test code=PLTMORPH) LARGE PLATELETS RARE PLATELET AGGREGATES CBC W/AUTO [id number] 16:54:00* Test Item Value Reference Range Comments WHITE BLOOD CELL (test code=WBC) 5.05 x10 3/uL 4.5-11.0 RED BLOOD CELL (test code=RBC) 4.04 x10 6/uL 3.54-5.02 HEMOGLOBIN (test code=HGB) 13.0 g/dL 11.0-15.0 HEMATOCRIT (test code=HCT) 42.4 % 33.0-45.0 MEAN CELL VOLUME (test code=MCV) 105.0 fL 81.0-99.0 MEAN CELL HGB (test code=MCH) 32.2 pg 27.0-33.0 MEAN CELL HGB CONCETRATION (test code=MCHC) 30.7 g/dL 33.0-37.0 RED CELL DISTRIBUTION WIDTH CV (test code=RDW) 17.6 % 11.5-14.5 RED CELL DISTRIBUTION WIDTH SD (test code=RDW-SD) 68.9 fL 37.0-54.0 PLATELET COUNT (test code=PLT) x10 3/uL 150-400 SEE PLATELET ESTIMATE MEAN PLATELET VOLUME (test code=MPV) 10.9 fL 7.0-9.0 NEUTROPHIL % (test code=NT%) 46.4 % 56.0-77.0 IMMATURE GRANULOCYTE % (test code=IG%) 0.2 % 0.0-2.0 LYMPHOCYTE % (test code=LY%) 47.3 % 14.0-32.0 MONOCYTE % (test code=MO%) 5.7 % 4.8-9.0 EOSINOPHIL % (test code=EO%) 0.0 % 0.3-3.7 BASOPHIL % (test code=BA%) 0.4 % 0.0-2.0 NUCLEATED RBC % (test code=NRBC%) 0.0 % 0-0 NEUTROPHIL # (test code=NT#) 2.34 x10 3/uL 2.0-7.6 IMMATURE GRANULOCYTE # (test code=IG#) 0.01 x10 3/uL 0.00-0.03 LYMPHOCYTE # (test code=LY#) 2.39 x10 3/uL 1.0-3.8 MONOCYTE # (test code=MO#) 0.29 x10 3/uL 0.1-0.8 EOSINOPHIL # (test code=EO#) 0.00 x10 3/uL 0.0-0.2 BASOPHIL # (test code=BA#) 0.02 x10 3/uL 0.0-0.2 NUCLEATED RBC # (test code=NRBC#) 0.00 x10 3/uL 0.0-0.1 MANUAL DIFF REQUIRED (test code=MDIFF) NO PLT [id number] 16:54:00* Test Item Value Reference Range Comments PLATELET ESTIMATE (test code=PLTEST) THOUSAND ADEQUATE CBC W/AUTO [id number] 16:23:00* Test Item Value Reference Range Comments WHITE BLOOD CELL (test code=WBC) 5.05 x10 3/uL 4.5-11.0 RED BLOOD CELL (test code=RBC) 4.04 x10 6/uL 3.54-5.02 HEMOGLOBIN (test code=HGB) 13.0 g/dL 11.0-15.0 HEMATOCRIT (test code=HCT) 42.4 % 33.0-45.0 MEAN CELL VOLUME (test code=MCV) 105.0 fL 81.0-99.0 MEAN CELL HGB (test code=MCH) 32.2 pg 27.0-33.0 MEAN CELL HGB CONCETRATION (test code=MCHC) 30.7 g/dL 33.0-37.0 RED CELL DISTRIBUTION WIDTH CV (test code=RDW) 17.6 % 11.5-14.5 RED CELL DISTRIBUTION WIDTH SD (test code=RDW-SD) 68.9 fL 37.0-54.0 PLATELET COUNT (test code=PLT) x10 3/uL 150-400 MEAN PLATELET VOLUME (test code=MPV) 10.9 fL 7.0-9.0 NEUTROPHIL % (test code=NT%) 46.4 % 56.0-77.0 IMMATURE GRANULOCYTE % (test code=IG%) 0.2 % 0.0-2.0 LYMPHOCYTE % (test code=LY%) 47.3 % 14.0-32.0 MONOCYTE % (test code=MO%) 5.7 % 4.8-9.0 EOSINOPHIL % (test code=EO%) 0.0 % 0.3-3.7 BASOPHIL % (test code=BA%) 0.4 % 0.0-2.0 NUCLEATED RBC % (test code=NRBC%) 0.0 % 0-0 NEUTROPHIL # (test code=NT#) 2.34 x10 3/uL 2.0-7.6 IMMATURE GRANULOCYTE # (test code=IG#) 0.01 x10 3/uL 0.00-0.03 LYMPHOCYTE # (test code=LY#) 2.39 x10 3/uL 1.0-3.8 MONOCYTE # (test code=MO#) 0.29 x10 3/uL 0.1-0.8 EOSINOPHIL # (test code=EO#) 0.00 x10 3/uL 0.0-0.2 BASOPHIL # (test code=BA#) 0.02 x10 3/uL 0.0-0.2 NUCLEATED RBC # (test code=NRBC#) 0.00 x10 3/uL 0.0-0.1 MANUAL DIFF REQUIRED (test code=MDIFF) NO PLT [id number] 16:23:00* Test Item Value Reference Range Comments PLATELET ESTIMATE (test code=PLTEST) THOUSAND ADEQUATE CBC W/AUTO [id number] 16:23:00* Test Item Value Reference Range Comments WHITE BLOOD CELL (test code=WBC) 5.05 x10 3/uL 4.5-11.0 RED BLOOD CELL (test code=RBC) 4.04 x10 6/uL 3.54-5.02 HEMOGLOBIN (test code=HGB) 13.0 g/dL 11.0-15.0 HEMATOCRIT (test code=HCT) 42.4 % 33.0-45.0 MEAN CELL VOLUME (test code=MCV) 105.0 fL 81.0-99.0 MEAN CELL HGB (test code=MCH) 32.2 pg 27.0-33.0 MEAN CELL HGB CONCETRATION (test code=MCHC) 30.7 g/dL 33.0-37.0 RED CELL DISTRIBUTION WIDTH CV (test code=RDW) 17.6 % 11.5-14.5 RED CELL DISTRIBUTION WIDTH SD (test code=RDW-SD) 68.9 fL 37.0-54.0 PLATELET COUNT (test code=PLT) x10 3/uL 150-400 MEAN PLATELET VOLUME (test code=MPV) 10.9 fL 7.0-9.0 NEUTROPHIL % (test code=NT%) 46.4 % 56.0-77.0 IMMATURE GRANULOCYTE % (test code=IG%) 0.2 % 0.0-2.0 LYMPHOCYTE % (test code=LY%) 47.3 % 14.0-32.0 MONOCYTE % (test code=MO%) 5.7 % 4.8-9.0 EOSINOPHIL % (test code=EO%) 0.0 % 0.3-3.7 BASOPHIL % (test code=BA%) 0.4 % 0.0-2.0 NUCLEATED RBC % (test code=NRBC%) 0.0 % 0-0 NEUTROPHIL # (test code=NT#) 2.34 x10 3/uL 2.0-7.6 IMMATURE GRANULOCYTE # (test code=IG#) 0.01 x10 3/uL 0.00-0.03 LYMPHOCYTE # (test code=LY#) 2.39 x10 3/uL 1.0-3.8 MONOCYTE # (test code=MO#) 0.29 x10 3/uL 0.1-0.8 EOSINOPHIL # (test code=EO#) 0.00 x10 3/uL 0.0-0.2 BASOPHIL # (test code=BA#) 0.02 x10 3/uL 0.0-0.2 NUCLEATED RBC # (test code=NRBC#) 0.00 x10 3/uL 0.0-0.1 MANUAL DIFF REQUIRED (test code=MDIFF) NO PLT [id number] 16:23:00* Test Item Value Reference Range Comments PLATELET ESTIMATE (test code=PLTEST) THOUSAND ADEQUATE BASIC METABOLIC [id number] 16:14:00* Test Item Value Reference Range Comments SODIUM (test code=NA) 134 mEq/L 134-147 POTASSIUM (test code=K) 5.3 mEq/L 3.4-5.0 CHLORIDE (test code=CL) 108 mEq/L 100-108 CARBON DIOXIDE (test code=CO2) 20 mEq/L 21-33 ANION GAP (test code=GAP) 11 0-20 GLUCOSE (test code=GLU) 75 mg/dL 70-110 BLOOD UREA NITROGEN (test code=BUN) 21 mg/dL 7-18 GLOMERULAR FILTRATION RATE (test code=GFR) 104.6 90-95 Units of measure=ml/min/1.73 m2 CREATININE (test code=CREAT) 0.6 mg/dL 0.6-1.3 CALCIUM (test code=CA) 8.7 mg/dL 8.0-10.5 - CT PELVIS W/O [id number] 14:38:00 Name: CALZADAMATT COURTNEY [facility] : 1965 Age/S: 53 / F [address] [place] [address] Unit #: [id number] Loc: [place] [address] Phys: Sonido Wright Acct: [id number] Dis Date: Status: REG ER PHONE #: [phone] Exam Date: 09/18/2018 1340 FAX #: [phone] Reason: left hip pain sp hip replacement EXAMS: CPT CODE: [id number] CT PELVIS W/O CONTRAST 67635 CT SCAN OF THE PELVIS WITHOUT CONTRAST: HISTORY: Acute left hip pain. Acute right hip pain after falling this morning. COMPARISON EXAMS: Previous abdominal pelvic CT scan of June 2018. TECHNIQUE: Axial images were obtained of the pelvis from the iliac crest through the symphysis pubis without contrast material. 2-D sagittal and coronal reconstructions were generated. DOSE: CT imaging performed at this location utilizes radiation dose optimization technique which includes one or more of the followin) Automated exposure control; 2) Adjustment of the mA and/or kV according to patient's size; 3) Use of iterative reconstruction techniques. DLP (mGy- cm): 144 FINDINGS: Healing, bilateral insufficiency fractures are identified through each side of the sacrum. The SI joints appear well preserved. Healing fracture is identified in the right pubic bones, immediately adjacent to the symphysis pubis. Specific attention was given to the hips. No acute fractures are identified in the proximal femora or at the level of the acetabuli. However, there are severe osteoarthritic changes, greater on the right than on the left. The right hip joint is completely obliterated and there is superior lateral s ubluxation of the right femoral head with flattening of the articular surf joaquín of the right femoral head. This is associated with marginal osteophyt e formation, subchondral cyst formation, and subchondral sclerosis. Simil ar, but less advanced changes are identified in the left hip joint. Evaluation of soft tissues is limited. There is evidence of aorto biiliac endovascular stents. No unusual masses or focal inflammatory mark ges identified in either lower quadrant or in the true pelvis. IMPRESSION: 1. No acute fractures identified about either hip. 2. 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 3. Moderate osteoarthritic changes at the left hip. 4. Bilateral sacral insufficien cy fractures. 5. Healing right pubic bone fracture. PAGE 1 Signed Report (CONTINUED) Name: MATT HOLT [facility] : [birth year] Age/S: 53 / F [address] [place] [address] Unit #: [id number] Loc: [place] [address] Phys: Sonido Wright Acct: [id number] Dis Date: Status: REG ER PHONE #: [phone] Exam Date: 09/18/2018 1340 FAX #: [phone] R loretta: left hip pain sp hip replacement EXAMS: CPT CODE: [id number] CT PELVIS W/O CONTRAST 26946 <Continued> SL:01 at 1438 Reported and signed by: Giovani Marrero M.D. CC: Sonido COX; Shayna Blood MD Technologist:RT Baldomero(R)(CT) CTDI: DLP: Trnscb Date/Time: 09/18/2018 (1438) ChanelAJJ Orig Print D/T: S: 09/18/2018 (4951) CTDI: DLP: PAGE 2 Signed Report - CT L-SPINE W/O [id number] 14:20:00 Name: MATT CALZADA [facility] : 1965 Age/S: 53 / F [address] [place], [place] [address] Unit #: [id number] Loc: [place] [address] Phys: Wright,Pet er PA Acct: [id number] Di s Date: Status: REG ER PHONE #: Exam Date: 09/18/2018 2702 FAX #: [phone] Reason: left hip pain sp hip replacement EXAMS: CPT CODE: [id number] CT L-SPINE W/O CONTRAST 19515 PROCEDURE: CT LUMBAR SPINE WITHOUT CONTRAST INDICATION: 53-year-old female with right hip pain after fall COMPARISON: MR lumbar spine 11/08/2015, CTA abdomen 07/03/2018 TECHNIQUE: Noncontrast helical imaging performed thorac olumbar junction through upper sacrum. Multiplanar reconstructions are available. DOSE: CT imaging performed at this location utilizes radiation dose optimization technique which includes one or more of the f ollowin) Automated exposure control; 2) Adjustment of the mA and/or kV according to patient's size; 3) Use of iterative reconstruction raymond hniques DLP (mGy-cm): 201.15 FINDINGS: ALIGNMENT AND GENERAL ASSESSMENT: There are 5 lumbar vertebral segments. There is a alonso btle obliquely oriented minimally displaced age-indeterminate fracture thr ough the sacral body (best seen on sagittal images). Given right sacral a la fracture seen on prior CT from June 2018, this may have occurred at the same time. No vertebral fracture or malalignment. Facet joints are maintained. The anterior and posterior paraspinous soft tissues are unrem arkable. DISC SPACES AND SOFT TISSUES: Disc space narrowing and vacuum phenomenon and osteophytosis noted at L2-L3. Mild broad-based disc bulge at L2-3 without significant spinal canal stenosis. Mild broad- based disc bulge at L3-4 with mild ligament flavum thickening and mild spi nal canal stenosis. Mild facet degeneration at L3-4. Mild broad-based di sc bulge at L4-5 with mild ligament flavum thickening and mild spinal vannesa l stenosis. Mild bilateral neuroforaminal stenosis at L4-5. OTHER: Atherosclerotic plaque at the aorta and its distal branches. Bilateral common iliac stents noted. Atrophic right kidney. Old healed right 11th rib fracture. IMPRESSION: 1. Age- indeterminate minimally displaced fracture of the body of the sacrum. G iven that a right sacral ala fracture was present on prior CT from 2017, this may have occurred at the same time. PAGE 1 Signed Report (CONTINUED) Name: MATT CALZADA [facility] : 1965 Age/S: 53 / F [address] [place] [address] Blvd Unit #: [id number] Loc: [place] [address] Phys: Sonido Wright Acct: [id number] Dis Date: Status: REG ER PHONE #: [phone] Exam Date: 1340 FAX #: [phone] Reason: left hip pain sp hip replacement EXAMS: CPT CODE: [id number] CT L-SPINE W/O CONTRAST 51868 <Continued> 2. No acute vertebral fracture identified. 3. Mild degenerative changes as described above. SL: [id number] at 1420 Reported and signed by: Gonzalez Crain M.D. CC: Sonido COX; Shayna Blood MD Technologist:RT Baldomero(R)(CT) CTDI: DLP: Trnscb Date/Time: 09/18/2018 (142) [email or web address] Orig Print D/T: S: 09/18/2018 (1423) CTDI: DLP: PAGE 2 Signed Report - XR FOOT 3 + V [id number] 14:16:00 FAX: Sonido Cantu [phone] [place]: St: REG FAX: Shayna Valdovinos MD [phone] FAX: Josue Eaton MD [phone] Name: MATT CALZADA [place] : 1965 Age/S: 53/F [address] [place] [address] Unit #: [id number] Loc: [place] [address] Phys: Sonido Wright Acct: [id number] Dis Date: Status: REG ER PH ONE #: [phone] Exam Date: 09/18/2018 1333 FAX #: [phone] Reason: foot pain EXAMS: CPT CODE: [id number] XR FOOT 3 + [place] [id number] RIGHT FOOT, 3 VIEWS: HISTORY: Acute right foot pain COMPARISON EXA MS: Previous right foot series of 08/16/2018. FINDINGS: 3 views of the right foot show evidence of previous amputation of the right great toe at the 1st MTP joint. Marked flexion and extension deformities are pr esent in the 2nd through the 5th toes making evaluation of the phalanges v moshe difficult. Side plate and screws are identified across a healed fract ure in the distal third of the 2nd metatarsal. The previously identified pin through the third metatarsal has been removed. Bone dens ity is generally diminished throughout the distal right tibia and fibula a nd the entire right foot. At the head of the 5th metatarsal, bone density is diminished and there is a question of minimal cortical irregularity and possible elevation of the periosteum. No other evidence of cortical dis ruption. IMPRESSION: 1. Previous amputation of the right great toe with sharply defined articular surface at the 1st m etatarsal. 2. Previous internal fixation of the 2nd metatarsal. 3. There is a question of cortical irregularity about the distal 5th m etatarsal. I am uncertain if this represents a healing fracture or oste omyelitis. If osteomyelitis is a concern, follow-up foot MRI with contr ast material would be helpful in further evaluation. The metallic plate may produce some dephasing artifact at the level of the 5th metatarsal. 4. Diffusely diminished bone density. 5. Flexion and extension deformities of the toes limit evaluation of the phalanges. SL:01 PAGE 1 Signed R eport (CONTINUED) FAX: Y Wright,Peter PA [phone] [place]: St: REG FAX: Shayna Valdovinos MD [phone] FA X: Josue Eaton MD [phone] Name: MATT CALZADA [facility] : 1965 Age/S: 53/F [address] [place] [address] Unit #: [id number] Loc: [place] [address] Phys: Sonido Wright Acct: [id number] Dis Date: Status: REG ER PHONE #: [phone] Exam Date: 08/30 1333 FAX #: [phone] Reason: foot pain EXAMS: CPT CODE: [id number] XR FOOT 3 + V RT [id number] <Continued> at 1416 Reported and signed by: Giovani Marrero M.D. CC: Sonido COX; Shayna Blood MD; Josue Eaton MD Technologist: RT Kathryn(R) Trnscrd Date/Time/By: 09/18/2018 (1416) : By: Analia Orig Print D/T: S: 09/18/2018 (1410) PAGE 2 Signed Report
--- OUTSIDE RECORDS SUMMARY | 2018-12-04 07:19 | XMS REPORT | Summary of Care ---
Author Author [facility] Organization [facility] Address Unknown Phone Unavailable Encounter [facility] French(MORRIS) [id number] Date(s): 05/26/16 - 05/26/16 [facility] [address] [place] [address]- [phone] Discharge Diagnosis: Acute hip pain Discharge Disposition: Home or Self Care Attending Physician: Kenyatta Rodgers DO Vital Signs 1 2 3 Most recent to oldest [Reference Range]: 98.3 DegF (05/26/16 11:30 PM) 98 DegF (05/26/16 6:57 PM) Temperature Oral [96.4-99.1 DegF] 118/74 mmHg (05/26/16 11:30 PM) 112/69 mmHg (05/26/16 6:57 PM) Blood Pressure [90-140/60-90 mmHg] 116 mmHg (05/26/16 9:30 PM) Systolic Blood Pressure [90-140 mmHg] 72 mmHg (05/26/16 9:30 PM) Diastolic Blood Pressure [60-90 mmHg] 18 BRMIN (05/26/16 11:30 PM) 18 BRMIN (05/26/16 9:30 PM) 18 BRMIN (05/26/16 6:57 PM) Respiratory Rate [14-20 BRMIN] 86 bpm (05/26/16 11:30 PM) 88 bpm (05/26/16 9:30 PM) 105 bpm *HI* (05/26/16 6:57 PM) Peripheral Pulse Rate [60-100 bpm] 59.091 kg (05/26/16 6:57 PM) Weight Problem List Condition Effective Dates Status Health Status Informant Anxiety(Confirmed)1 Active Ectopic Resolved (Confirmed) Hypertension(Confirm Active ed)2 1states out of meds 2states out of meds Allergies, Adverse Reactions, Alerts Substance Reaction Severity Status Toradol Active Medications Motrin 800 mg, Route: PO, Drug form: TAB, ONCE, Dosing Weight 59.091, kg, Start date: 0 05/26/16 19:08:00 CDT, Stop date: 05/26/16 19:08:00 CDT Start Date: 05/26/16 Stop Date: 05/26/16 Status: Completed [place] 10/325 oral tablet 1 tab, Route: PO, Drug Form: TAB, Dosing Weight 59.091, kg, ONCE, STAT, Start da te: 05/26/16 22:25:00 CDT, Stop date: 05/26/16 22:25:00 CDT Start Date: 05/26/16 Stop Date: 05/26/16 Status: Completed Results No data available for this section Immunizations Given and Recorded Vaccine Date Status Refusal Reason tetanus-diphtheria toxoids 03/14/14 Given tetanus-diphtheria toxoids 06/14/13 Given Procedures Procedure Date Related Diagnosis Body Site 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 Smoking Status Current every day smoker; Type: Cigarettes; Ready to change: No; Concerns about tobacco use in household: No; Exposure to Tobacco Smoke None; Cigarette Smoking Last 365 Days Yes; Reg Smoking Cessation Counseling Yes Assessment and Plan No data available for this section
--- OUTSIDE RECORDS SUMMARY | 2018-12-04 07:19 | XMS REPORT | Summary of Care ---
Author Organization Unknown Address Unknown Phone Unavailable Encounter LISA Braswell(MORRIS) [id number] Date(s): 08/21/14 - 08/21/14 [facility] [address] [address] - [facility] Discharge Disposition: Non-Emergent Physician Attending: Tam Banks MD Reason for Visit LEG PAIN Vital Signs Most recent to 1 oldest [Reference Range]: Height 165.1 cm (08/21/14 7:29 AM) Temperature Oral 98.3 DegF [96.4-99.1 DegF] (08/21/14 7:29 AM) Systolic Blood 151 mmHg Pressure [90-140 *HI* mmHg] (08/21/14 7:29 AM) Diastolic Blood 92 mmHg Pressure [60-90 *HI* mmHg] (08/21/14 7:29 AM) Respiratory Rate 18 BRMIN [14-20 BRMIN] (08/21/14 7:29 AM) Peripheral Pulse 91 bpm Rate [60-100 bpm] (08/21/14 7:29 AM) Weight 59.091 kg (08/21/14 7:29 AM) Body Mass Index 21.68 m2 (08/21/14 7:29 AM) Problem List Condition Effective Dates Status Health Status Informant Hypertension(Confirm Resolved ed) Allergies, Adverse Reactions, Alerts Substance Reaction Severity Status NKDA Active Medications No data available for this section Medications Administered During Your Visit No data available for this section Immunizations Vaccine Date Refusal Reason tetanus-diphtheria toxoids 03/14/14 tetanus-diphtheria toxoids 06/14/13 Social History Social History Type Response Alcohol Use: Past, Type: Beer Smoking Status Current every day smoker, Type: Cigarettes, Exposure to Tobacco Smoke None, Cigarette Smoking Last 365 Days Yes, Reg Smoking Cessation Counseling Yes
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
--- OUTSIDE RECORDS SUMMARY | 2018-12-04 07:19 | XMS REPORT | Summary of Care ---
Author Author [facility] Organization [facility] Address Unknown Phone Unavailable Encounter LISA Braswell(MORRIS) [id number] Date(s): 09/28/15 - 09/28/15 [facility] [address] [employer] provided by [employer] [facility] [employer] [place] [address]- Discharge Diagnosis: Acute pain of left thigh Discharge Disposition: Home Attending Physician: Freddy Campo MD Vital Signs Most recent to 1 2 oldest [Reference Range]: Height 165.1 cm (09/28/15 6:57 PM) Temperature Oral 98.3 DegF [96.4-99.1 DegF] (09/28/15 6:57 PM) Blood Pressure 121/80 mmHg 123/84 mmHg [90-140/60-90 mmHg] (09/28/15 9:00 PM) (09/28/15 6:57 PM) Respiratory Rate 18 BRMIN 20 BRMIN [14-20 BRMIN] (09/28/15 9:00 PM) (09/28/15 6:57 PM) Peripheral Pulse 98 bpm 105 bpm Rate [60-100 bpm] (09/28/15 9:00 PM) *HI* (09/28/15 6:57 PM) Weight 54.545 kg (09/28/15 6:57 PM) Body Mass Index 20.01 m2 (09/28/15 6:57 PM) Problem List Condition Effective Dates Status Health Status Informant Anxiety(Confirmed)1 Resolved Hypertension(Confirm Resolved ed)2 1states out of meds 2states out of meds Allergies, Adverse Reactions, Alerts Substance Reaction Severity Status Toradol Active Medications acetaminophen-codeine #3 1 tab, Route: PO, Drug Form: TAB, Dosing Weight 54.545, kg, ONCE, STAT, Start da te: 09/28/15 20:57:00, Stop date: 09/28/15 20:57:00 Start Date: 09/28/15 Stop Date: 09/28/15 Status: Completed acetaminophen-codeine #3 1 tab, Route: PO, Drug Form: TAB, Dosing Weight 54.545, kg, ONCE, STAT, Start da te: 09/28/15 19:45:00, Stop date: 09/28/15 19:45:00 Notes: Do not exceed 4gm/day of acetaminophen. (Same as: Tylenol with Codeine # 3) Start Date: 09/28/15 Stop Date: 09/28/15 Status: Completed Tylenol with Codeine #3 oral tablet 1 - 2 tab, PO, Q4H, PRN Pain, X 3 day, # 20 tab, 0 Refill(s) Start Date: 09/28/15 Stop Date: 10/01/15 Status: Ordered Results No data available for [...]
--- OUTSIDE RECORDS SUMMARY | 2018-12-04 07:19 | XMS REPORT | Summary of Care ---
Author Author [facility] Organization [facility] Address Unknown Phone Unavailable Encounter LISA Braswell(MORRIS) [id number] Date(s): 07/29/15 - 07/29/15 [facility] [address] [place] [address]- Discharge Diagnosis: Hip osteoarthritis Discharge Disposition: Home Attending Physician: Mindy Siddiqui MD Vital Signs Most recent to 1 2 oldest [Reference Range]: Height 165.1 cm (07/29/15 2:08 PM) Temperature Oral 98.1 DegF 98.1 DegF [96.4-99.1 DegF] (07/29/15 5:33 PM) (07/29/15 2:08 PM) Blood Pressure 141/87 mmHg 165/85 mmHg [90-140/60-90 mmHg] *HI* *HI* (07/29/15 5:33 PM) (07/29/15 2:08 PM) Respiratory Rate 18 BRMIN 18 BRMIN [14-20 BRMIN] (07/29/15 5:33 PM) (07/29/15 2:08 PM) Peripheral Pulse 92 bpm 116 bpm Rate [60-100 bpm] (07/29/15 5:33 PM) *HI* (07/29/15 2:08 PM) Weight 56.818 kg (07/29/15 2:08 PM) Body Mass Index 20.84 m2 (07/29/15 2:08 PM) Problem List Condition Effective Dates Status Health Status Informant Anxiety(Confirmed)1 Resolved Hypertension(Confirm Resolved ed)2 1states out of meds 2states out of meds Allergies, Adverse Reactions, Alerts Substance Reaction Severity Status NKDA Active Medications [place] 5/325 oral tablet 1 tab, Route: PO, Drug Form: TAB, Dosing Weight 56.818, kg, ONCE, STAT, Start da te: 07/29/15 16:51:00, Stop date: 07/29/15 16:51:00 Start Date: 07/29/15 Stop Date: 07/29/15 Status: Discontinued tramadol 50 mg, Route: PO, Drug form: TAB, ONCE, Dosing Weight 56.818, kg, > 50 kg, Priority: STAT, Start date: 07/29/15 16:55:00, Stop date: 07/29/15 16:55:00 Start Date: 07/29/15 Stop Date: 07/29/15 Status: Completed Tylenol with Codeine #3 oral tablet 1 tab, Route: PO, Drug Form: TAB, Dosing Weight 56.818, kg, ONCE, STAT, Start da te: 07/29/15 17:09:00, Stop date: 07/29/15 17:09:00 Start Date: 07/29/15 Stop Date: 07/29/15 Status: Completed Tylenol with Codeine #3 oral tablet 1 - 2 tab, PO, Q4H, PRN Pain, X 2 day, # 20 tab, 0 Refill(s) Start Date: 07/29/15 Stop Date: 07/31/15 Status: Completed Results No data available for [...]
--- OUTSIDE RECORDS SUMMARY | 2018-12-04 07:19 | XMS REPORT | Summary of Care ---
Author Organization Unknown Address Unknown Phone Unavailable Encounter LISA Braswell(MORRIS) [id number] Date(s): 07/23/14 - 07/23/14 [facility] [address] [address] - [place] Discharge Diagnosis: Hip pain, acute Discharge Diagnosis: Leg pain Discharge Disposition: Home Physician Attending: Zak Castillo MD Reason for Visit HIP PAIN OR INJURY Vital Signs 1 2 3 Most recent to oldest [Reference Range]: 98.3 DegF (07/23/14 5:41 PM) 98.2 DegF (07/23/14 5:00 PM) 98.0 DegF (07/23/14 2:14 PM) Temperature Oral [96.4-99.1 DegF] 128 mmHg (07/23/14 5:41 PM) 149 mmHg *HI* (07/23/14 5:00 PM) 133 mmHg (07/23/14 2:14 PM) Systolic Blood Pressure [90-140 mmHg] 68 mmHg (07/23/14 5:41 PM) 80 mmHg (07/23/14 5:00 PM) 102 mmHg *HI* (07/23/14 2:14 PM) Diastolic Blood Pressure [60-90 mmHg] 16 BRMIN (07/23/14 5:41 PM) 18 BRMIN (07/23/14 5:00 PM) 18 BRMIN (07/23/14 2:14 PM) Respiratory Rate [14-20 BRMIN] 92 bpm (07/23/14 5:41 PM) 95 bpm (07/23/14 5:00 PM) 103 bpm *HI* (07/23/14 2:14 PM) Peripheral Pulse Rate [60-100 bpm] Problem List Condition Effective Dates Status Health Status Informant Hypertension(Confirm Resolved ed) Allergies, Adverse Reactions, Alerts Substance Reaction Severity Status NKDA Active Medications Flexeril 10 mg, Route: PO, ONCE, Dosing Weight 60, kg, Priority: STAT, Start date: 14:20:00, Stop date: 07/23/14 14:20:00 Start Date: 07/23/14 Stop Date: 07/23/14 Status: Completed Flexeril 10 mg oral tablet 10 mg, PO, TID, Muscle Spasm, # 20 tab, 0 Refill(s) Start Date: 07/23/14 Stop Date: 08/02/14 Status: Ordered ketorolac 60 mg, Route: IM, Drug form: INJ, ONCE, Dosing Weight 60, kg, Priority: STAT, St art date: 07/23/14 16:55:00, Stop date: 07/23/14 16:55:00 Start Date: 07/23/14 Stop Date: 07/23/14 Status: Completed naproxen 500 mg oral tablet 500 mg, PO, BID, Pain, # 30 tab, 0 Refill(s) Start Date: 07/23/14 Stop Date: 08/07/14 Status: Ordered [place] 5/325 oral tablet 1 tab, Route: PO, Drug Form: TAB, Dosing Weight 60, kg, ONCE, STAT, Start date: 07/23/14 14:20:00, Stop date: 07/23/14 14:20:00 Start Date: 07/23/14 Stop Date: 07/23/14 Status: Completed Tylenol with Codeine #3 oral tablet 1 tab, PO, Q6H, for pain, # 20 tab, 0 Refill(s) Start Date: 07/23/14 Status: Ordered Results URINE CHEM Most recent to 1 oldest [Reference Range]: U Preg [Negative] Negative (07/23/14 2:20 PM) Medications Administered During Your Visit No data [...]
--- OUTSIDE RECORDS SUMMARY | 2018-12-04 07:19 | XMS REPORT | Summary of Care ---
Author Author [facility] Organization [facility] Address Unknown Phone Unavailable Encounter LISA Braswell(MORRIS) [id number] Date(s): 02/16/16 - 02/16/16 [facility] [address] [place] [address]- [phone] Discharge Diagnosis: Right hip pain Discharge Diagnosis: Arthritis Discharge Disposition: Home Attending Physician: Jordan Wilhelm DO Vital Signs Most recent to 1 2 oldest [Reference Range]: Height 165.1 cm (02/16/16 1:13 PM) Temperature Oral 98.4 DegF [96.4-99.1 DegF] (02/16/16 1:13 PM) Blood Pressure 149/94 mmHg 141/65 mmHg [90-140/60-90 mmHg] *HI* *HI* (02/16/16 4:00 PM) (02/16/16 1:13 PM) Respiratory Rate 20 BRMIN 18 BRMIN [14-20 BRMIN] (02/16/16 4:00 PM) (02/16/16 1:13 PM) Peripheral Pulse 60 bpm 77 bpm Rate [60-100 bpm] (02/16/16 4:00 PM) (02/16/16 1:13 PM) Weight 53.381 kg (02/16/16 1:13 PM) Body Mass Index 19.58 m2 (02/16/16 1:13 PM) Problem List Condition Effective Dates Status Health Status Informant Anxiety(Confirmed)1 Active Ectopic Resolved (Confirmed) Hypertension(Confirm Active ed)2 1states out of meds 2states out of meds Allergies, Adverse Reactions, Alerts Substance Reaction Severity Status Toradol Active Medications Duexis 800 mg-26.6 mg oral tablet 1 tab, PO, TID, 0 Refill(s) Start Date: 02/16/16 Status: Ordered lisinopril 20 mg oral tablet 20 mg=1 tab, PO, Daily, 0 Refill(s) Start Date: 02/16/16 Status: Ordered morphine Sulfate 4 mg, 1 mL, Route: IM, Drug form: INJ, ONCE, Dosing Weight 53.381, kg, Priority: STAT, Start date: 02/16/16 13:45:00 CDT, Stop date: 02/16/16 13:45:00 CDT Notes: (Same as:MORPhine Sulfate) Start Date: 02/16/16 Stop Date: 02/16/16 Status: Completed [place] 10/325 oral tablet 1 tab, Route: PO, Drug Form: TAB, Dosing Weight 53.381, kg, ONCE, STAT, Start da te: 02/16/16 14:25:00 CDT, Stop date: 02/16/16 14:25:00 CDT Start Date: 02/16/16 Stop Date: 02/16/16 Status: Completed [place] 10/325 oral tablet 1 tab, PO, Q6H, 0 Refill(s) Start Date: 02/16/16 Status: Ordered tramadol 50 mg oral tablet 50 mg=1 tab, PO, Q6H, X 5 day, # 20 tab, 0 Refill(s) Start Date: 02/16/16 Stop Date: 02/21/16 Status: Ordered Unknown Home Medication Refill(s) 0 Start Date: 02/16/16 Status: Ordered Xanax 1 mg oral tablet 1 mg=1 tab, PO, Q8H, PRN Anxiety, X 10 day, # 20 tab, 0 Refill(s) Start Date: 02/16/16 Stop Date: 02/26/16 Status: Ordered Xanax 1 mg oral tablet 1 mg, 1 tab, Route: PO, Drug form: TAB, ONCE, Dosing Weight 53.381, kg, Priority : STAT, Start date: 02/16/16 15:34:00 CDT, Stop date: 02/16/16 15:34:00 CDT Notes: With food or milk(Same as: Xanax) Start Date: 02/16/16 Stop Date: 02/16/16 Status: Completed Results No data available for this section Immunizations Given and Recorded Vaccine Date Status Refusal Reason tetanus-diphtheria toxoids 03/14/14 Given tetanus-diphtheria toxoids 06/14/13 Given Procedures Procedure Date Related Diagnosis Body Site 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
[2018-12-04] MEDS ORDERED: CELECOXIB 200 MG CAP ONE (07:21)
[2018-12-04] MEDS ORDERED: CEFAZOLIN SOD 2 GM/D5W 50ML 50 ML IV ONE (07:22)
[2018-12-04] MEDS ORDERED: GABAPENTIN 300 MG CAP ONE (07:22)
[2018-12-04] MEDS ORDERED: BACITRACIN 50,000 UNIT VIAL ONE (07:22)
[2018-12-04] MEDS ORDERED: TRANEXAMIC ACID 1,000 MG/10 ML ML ONE (07:22)
[2018-12-04] MEDS ORDERED: DEXAMETHASONE SOD PHOS 10 MG/1 ML VIAL ONE (07:22)
[2018-12-04] MEDS ORDERED: MORPHINE SULFATE/PF 1 MG/1 ML 10ML VIAL ONE ×2 (07:24→07:49)
[2018-12-04] MEDS ORDERED: SODIUM CHLORIDE 0.9% 500ML 500 ML ONE (07:36)
[2018-12-04] MEDS ORDERED: VANCOMYCIN HCL 1,000 MG ONE (07:38)
[2018-12-04] MEDS: SODIUM CHLORIDE 0.9% 1000ML 1,000 ML IV SCH ×2 (09:38→17:08)
[2018-12-04] MEDS ORDERED: DOCUSATE SODIUM 100 MG CAP PO PRN (09:45)
[2018-12-04] MEDS ORDERED: HYDROCODONE/APAP 5MG-325MG TAB PO PRN (09:45)
[2018-12-04] MEDS ORDERED: ONDANSETRON HCL INJ 2MG/ML 2ML 2 MG/ML VIAL IV PRN (09:45)
[2018-12-04] MEDS ORDERED: PROMETHAZINE HCL (IM) 25 MG/ML VIAL IM PRN (09:45)
[2018-12-04] MEDS ORDERED: ACETAMINOPHEN 650 MG SUPP PR PRN (09:45)
[2018-12-04] MEDS ORDERED: DIPHENHYDRAMINE HCL INJ 50 MG/ML VIAL IM/IV PRN (09:45)
[2018-12-04] MEDS ORDERED: HYDROMORPHONE 2MG/ML 2 MG/ML ML ONE (10:01)
[2018-12-04] MEDS ORDERED: MORPHINE SULFATE INJ 4 MG/ML INJ 1ML ONE ×2 (10:26→14:11)
[2018-12-04] MEDS ORDERED: FENTANYL CITRATE/PF 100MCG/2 ML INJ ONE ×3 (10:35→18:54)
--- NOTE | 2018-12-04 11:20 | Diagnostic Imaging Report ---
Right hip radiograph-1 view, AP radiograph of the pelvis. History: Postoperative. Findings: Status post total right hip arthroplasty with prosthetic components in anatomic alignment. Overlying subcutaneous emphysema and and surgical skin jw are present. Bony alignment is maintained. Pelvic radiograph demonstrates severe degenerative changes of the left hip and mild degenerative changes of the pubic symphysis. No evidence of acute fracture or malalignment. Bilateral iliac stents are partially visualized. IMPRESSION: Postsurgical changes status post right total hip arthroplasty with intact alignment. Signed by: Dr. Butch Montilla MD on 12/04/2018 11:17 AM
--- NOTE | 2018-12-04 12:16 | Operative Report ---
DATE OF PROCEDURE: 12/04/2018 SURGEON: Julio Nails MD GARDEN MACHINERY MECHANIC: Nate Caraballo, certified PA. PREOPERATIVE DIAGNOSIS: Osteoarthritis, right hip with dysplastic acetabulum. POSTOPERATIVE DIAGNOSIS: Osteoarthritis, right hip with dysplastic acetabulum. PROCEDURE: Right total hip replacement with acetabular reconstruction. INDICATIONS: The patient is a 53-year-old lady, who has severe arthritic changes of her right hip. She has failed conservative management and would like to proceed with a right total hip replacement. The risks and benefits of the procedure have been discussed. The evidence of her hip dysplasia and what that means for her reconstruction has been explained. She states she understands and wishes to proceed. PROCEDURE IN DETAIL: The patient was brought to the operating room and placed under spinal anesthetic. She received prophylactic antibiotics and tranexamic acid in the holding area. She was positioned in the left lateral decubitus position. Her right hip was prepped and draped in a sterile manner. She was adamant that she continue to feel pain in her right lower extremity. She was then placed under general anesthetic. A posterior approach was made to the right hip. Care was taken to avoid injury to the sciatic nerve. Hemostasis was obtained with electrocautery. The posterior capsule and short external rotators were released to dislocate the hip. An oscillating saw was used to resect the femoral head. Severe loss of articular cartilage was noted. Acetabular retractors were placed. The true floor of the acetabulum was established with a 44 mm reamer. Her bone was very soft. She had been primarily using a wheelchair. The socket was sequentially reamed up to 51 mm. The superior aspect of this dysplastic socket was then decorticated. A Xena Biomet 52 mm outer diameter OsseoTi socket was then impacted into place. Fixation was augmented with a pair of cancellous screws placed into the ilium. Good secure fixation was felt to be obtained. Autologous cancellous bone was taken from the femoral head. This was impaction grafted into the superior rim area that was uncovered. I would estimate this to be less than 20% of the post socket contact. A highly cross-linked polyethylene liner with a 36 mm inner diameter was then impacted into place. Care was taken to make sure that there was no evidence of soft tissue interposition. Throughout this portion of the case, the hip was repeatedly irrigated with a shower tip pulsatile lavage. A mixture of polymyxin and vancomycin spray was also used. Attention was then directed toward the proximal femur. A box cutting osteotome and taper pin reamer were used to establish entry to the femoral canal. Once again, the bone was soft. The taper lock broaches were then impacted into place. It took a 14 mm stem to have good rotational stability. Trial reductions were performed. A standard 36 mm head provided appropriate adventist of limb length, soft tissue balancing, and good stability. The trial implants were then all removed. The hip was further irrigated with a shower tip pulsatile lavage. A 100 mL premixed pericapsular CAROLYNN injection was placed into the surrounding soft tissue. The components were seated and a final reduction was obtained. A standard 36 mm head was chosen. The posterior capsule and short external rotators were quite redundant and could easily be repaired. The iliotibial band and gluteal fascia were then also closed with #2 Ethibond. The skin was closed with subcuticular Vicryl and jw. Sterile Aquacel bandage was applied. She was returned to the supine position, extubated, and transferred to the recovery room in stable condition. Estimated blood loss was 75 mL. At the end of the procedure, all needle and sponge counts were correct. Julio Nails MD DR/PEEWEE /[id number]
[2018-12-04] MEDS ORDERED: HYDROCODONE/APAP 7.5MG-325MG 1 EA TAB ONE (13:05)
[2018-12-04] MEDS: ACETAMINOPHEN 1000 MG/100 ML IV SCH ×3 (14:20→17:08)
[2018-12-04] MEDS ORDERED: ACETAMINOPHEN 1000 MG/100 ML 100 ML IV ONE (14:40)
[2018-12-04 15:58] VITALS: BP 113/63
[2018-12-04] MEDS ORDERED: CELECOXIB 100 MG CAP PO SCH (17:00)
[2018-12-04] MEDS: ASPIRIN 325 MG TAB PO SCH (17:07)
[2018-12-04] MEDS: CELECOXIB 200 MG CAP PO SCH (17:07)
[2018-12-04] MEDS: CEFAZOLIN SOD 1 GM/NS 50ML 50 ML IV SCH ×2 (17:07→23:32)
[2018-12-04] MEDS ORDERED: ALPRAZOLAM0.5 MG PO (17:09)
[2018-12-04 17:15] VITALS: BP 113/63
[2018-12-04 17:29] VITALS: BP 113/63
[2018-12-04] MEDS: ALPRAZOLAM 0.5 MG TAB PO PRN (17:40)
[2018-12-04] MEDS ORDERED: SEVOFLURANE INHAL SOLN 250 ML PEN BTL ONE (17:50)
[2018-12-04] MEDS ORDERED: ACETAMINOPHEN 1000 MG/100 ML IV ONE (17:50)
[2018-12-04] MEDS ORDERED: DEXAMETHASONE SOD PHOS INJ 4 MG/ML VIAL ONE (17:50)
[2018-12-04] MEDS ORDERED: PROPOFOL IV EMULSION 10 MG/ML 20 ML VIAL ONE (17:50)
[2018-12-04] MEDS ORDERED: ONDANSETRON HCL INJ 2MG/ML 2ML 2 MG/ML VIAL ONE (17:50)
[2018-12-04] MEDS ORDERED: LIDOCAINE HCL 2% LOCAL INJ 5 ML SDV VIAL INJ ONE (17:50)
[2018-12-04] MEDS: HYDROCODONE/APAP 7.5MG-325MG 1 EA TAB PO PRN ×2 (18:18→23:33)
[2018-12-04] MEDS ORDERED: MIDAZOLAM HCL 2 MG/2 ML VIAL ONE (18:54)
[2018-12-04 20:06] VITALS: BP 138/68
[2018-12-04 20:35] VITALS: BP 138/68
[2018-12-04] MEDS: PREGABALIN 25 MG CAP PO SCH (21:40)
[2018-12-04] MEDS: ZOLPIDEM TARTRATE 5 MG TAB PO PRN (21:41)
[2018-12-05] VITALS (7 sets, daily range): BP systolic 119–130; BP diastolic 66–81
[2018-12-05] MEDS: ACETAMINOPHEN 1000 MG/100 ML IV SCH ×2 (00:10→05:32)
[2018-12-05] MEDS: HYDROCODONE/APAP 7.5MG-325MG 1 EA TAB PO PRN ×2 (03:52→08:12)
[2018-12-05 06:25] LABS: BASOPHILS % 0.1 % (0.0-1.0); HEMATOCRIT 28.4 % (34.2-44.1); HEMOGLOBIN 9.1 g/dL (12.0-16.0); LYMPHOCYTES # (AUTO) 2.2 (1.0-3.2); LYMPHOCYTES % 17.4 % (18.0-39.1); MEAN CORPUSCULAR HEMOGLOBIN 32.9 pg (28-32); MEAN CORPUSCULAR VOLUME 102.5 fL (81-99); MONOCYTES # (AUTO) 1.1 (0.2-0.8); MONOCYTES % 8.9 % (4.4-11.3); NEUTROPHILS # (AUTO) 9.2 (2.1-6.9); NEUTROPHILS % 73.2 % (38.7-80.0); PLATELET COUNT 174 x10e3/uL (140-360); RED BLOOD COUNT 2.77 x10e6/uL (3.6-5.1); RED CELL DISTRIBUTION WIDTH 15.3 % (11.7-14.4)
[2018-12-05 07:07] LABS: ANION GAP 9.7 mmol/L (8-16); BLOOD UREA NITROGEN 21 mg/dL (7-26); BUN/CREATININE RATIO 29 (6-25); CALCIUM 8.7 mg/dL (8.4-10.2); CARBON DIOXIDE 25 mmol/L (22-29); CHLORIDE 104 mmol/L (98-107); CREATININE, SERUM 0.72 mg/dL (0.57-1.11); EST GLOMERULAR FILTRATION RATE > 60 ML/MIN (60-); GLUCOSE 101 mg/dL (74-118); POTASSIUM 4.7 mmol/L (3.5-5.1); SODIUM 134 mmol/L (136-145)
[2018-12-05] MEDS: KETOROLAC TROMETHAMINE 30 MG/ML VIAL IV PRN (07:36)
[2018-12-05] MEDS: CEFAZOLIN SOD 1 GM/NS 50ML 50 ML IV SCH (07:49)
[2018-12-05] MEDS: PREGABALIN 25 MG CAP PO SCH ×3 (07:49→21:29)
[2018-12-05] MEDS: CELECOXIB 200 MG CAP PO SCH ×2 (07:49→16:20)
[2018-12-05] MEDS: ASPIRIN 325 MG TAB PO SCH ×2 (07:49→16:20)
[2018-12-05] MEDS: SENNOSIDES 8.6 MG TAB PO SCH ×2 (09:00→16:20)
[2018-12-05] MEDS ORDERED: ACETAMINOPHEN 1000 MG/100 ML IV PRN (09:45)
--- NOTE | 2018-12-05 10:30 | NUR ---
CASE MANAGEMENT ASSESSMENT Digital Media Designer to bedside to discuss plan of care with patient/family. CM/SW role and care transitions discussed. Anticipated discharge plan discussed along with duration of care. CM/SW discussed patients right to make decisions in care. CM/SW work hours given. Patient lives: with friends Admit/Transfer: from PACU Hospital/ER visits since last admit: 0 POA/Emergency contact: daughter Beth Kessler [phone] Current/Previous Home Health: none currently PCP/Follow-up Care: Dr. Avila - PCP; pt states that she will follow up with Dr. Nails as instructed. Current/Previous DME: has wheelchair. 3-in-1 commode and walker was ordered thru [employer] by Dr. Nails's office. Medications (referring to index hospitalization or the first time you were in the hospital) a. Were changes made in your medications when you were in the hospital on [date of index hospitalization]? n/a b. Did you understand the changes? n/a c. Were you able to obtain your new medications right away? n/a d. Were you able to take your medications like the doctor wanted you to? n/a e. Did the hospital give you an accurate, easy to understand list of medications when you left? n/a Scale of 1-10 how comfortable does patient feel with disease management in outpatient settin Other Services: none Employment Status: disabled Areas of Concerns: pt states she doesn't feel safe to go home since she doesn't have anyone there to help her today; she will talk to MD when he rounds. pt also concerned regarding steps to get into her house. Will have PT work with her on steps. Referral Needs: home health Referral was sent to [facility] by Dr. Nails's office. Choice letter signed and placed in chart. Copy to pt. CM will call and verify that they will be able to see pt. Education Needs: medical management, post operative instructions IMM/BRADSHAW given and signed (if applicable): n/a Goal for discharge: home with home health CM/SW left business card at the bedside with contact information. Name and number was also written on the patients whiteboard. Patient verbalized understanding of discussion. CM will follow-up with ongoing discharge and transition of care needs.
[2018-12-05] MEDS: HYDROCODONE/APAP 10MG-325MG TAB PO PRN ×3 (11:54→20:45)
[2018-12-05] MEDS: ALPRAZOLAM 0.5 MG TAB PO PRN ×3 (11:55→21:36)
--- NOTE | 2018-12-05 13:40 | NUR ---
Visit made by the Spiritual Care Department Pastoral Visitor, Karen Benitez. PV provided pastoral presence, hospitality, and supportive listening. Pastoral Visitor informed pt/family of the scope of Sleep Lab Technologist Services and availability. PACO GUNDERSON Supplier Engineer Spiritual Care Department O: [phone] Pager: [phone] ([phone] number calling from)
--- NOTE | 2018-12-05 14:00 | NUR ---
Walker and BSC has been delivered to pt's room.
[2018-12-05] MEDS: ZOLPIDEM TARTRATE 5 MG TAB PO PRN (22:21)
[2018-12-06 00:37] VITALS: BP 126/70
[2018-12-06] MEDS: HYDROCODONE/APAP 10MG-325MG TAB PO PRN ×3 (02:36→11:16)
[2018-12-06] MEDS: ALPRAZOLAM 0.5 MG TAB PO PRN (02:44)
[2018-12-06 06:14] LABS: HEMOGLOBIN 9.2 g/dL (12.0-16.0)
--- NOTE | 2018-12-06 07:27 | NUR ---
RECEIVED PATIENT AWAKE IN WHEELCHAIR, NO SIGNS OF DISTRESS. CALL LIGHT IN REACH WILL CONTINUE TO MONITOR.
[2018-12-06 07:44] VITALS: BP 146/73
--- NOTE | 2018-12-06 07:44 | NUR ---
PATIENT WORKING WITH PT AT THIS TIME.
[2018-12-06] MEDS: CELECOXIB 200 MG CAP PO SCH (08:17)
[2018-12-06] MEDS: PREGABALIN 25 MG CAP PO SCH (08:17)
[2018-12-06] MEDS: ASPIRIN 325 MG TAB PO SCH (08:17)
[2018-12-06] MEDS: SENNOSIDES 8.6 MG TAB PO SCH (08:17)
[2018-12-06] MEDS: KETOROLAC TROMETHAMINE 30 MG/ML VIAL IV PRN (08:24)
[2018-12-06] MEDS ORDERED: ONDANSETRON HCL 4 MG ORAL DISINTEGRATING TAB PO PRN (09:30)
[2018-12-06 09:54] VITALS: BP 146/73
--- NOTE | 2018-12-06 10:30 | NUR ---
Pt unavailable at this time. Pt working with PT. I will follow up as able. PACO Cowanlain Spiritual Care Department O: [phone] Pager: [phone] ([phone] number calling from)
--- NOTE | 2018-12-06 11:15 | NUR ---
CM called and spoke to Nita at [facility]. She stated that they are unable to take pt due to staffing. CM spoke to pt at bedside and informed her. Informed her that CM found another home health company that can take her insurance. Pt stated that she is going to [place] to stay with her cousin for a few weeks when she leaves the hospital. Pt does not want CM to set up home health. Stated that when she gets to [place], she will call her insurance and get it set up. MIMA called and spoke to BROOKE Sullivan with Dr. Nails and informed him of above. He stated that it was ok for pt to discharge without home health set up. Stated pt needs to continue to move around. Spoke to pt and informed her. She stated that she will continue with exercises as instructed by PT.
[2018-12-06 11:49] VITALS: BP 127/70
[2018-12-06] MEDS ORDERED: SENNA S TABLET1 EACH PO (11:50)
[2018-12-06] MEDS ORDERED: MOBIC7.5 MG PO (11:51)
--- NOTE | 2018-12-06 12:05 | NUR ---
REMOVED PATIENTS IV. CATHETER TIP INTACT AND PRESSURE DRESSING APPLIED.
--- NOTE | 2018-12-06 12:51 | NUR ---
PATIENT DISCHARGED FROM FACILITY. PATIENT GATHERED ALL PERSONAL BELONGINGS, DISCHARGE INSTRUCTIONS, AND FOLLOW UP INFORMATION. NO SIGNS OF DISTRESS WHEN LEAVING FACILITY.
== END 2018-12-06 12:53 | disposition home health service (06) | DRG 470 ==
LOC: OR 07:14 → PACU V 09:40 → MED/SURG 15:42
PROVIDERS: ADMIT Specialist; ATTEND Specialist
PROC: 0SR90JZ Replacement of Right Hip Joint with Synthetic Substitute, Open Approach (ICD-10-PCS; principal; 2018-12-04 08:00)
DX: M16.0 Bilateral primary osteoarthritis of hip (principal); M16.10 Unilateral primary osteoarthritis, unspecified hip; K21.9 Gastro-esophageal reflux disease without esophagitis; J44.9 Chronic obstructive pulmonary disease, unspecified; I10 Essential (primary) hypertension; I73.9 Peripheral vascular disease, unspecified; M62.838 Other muscle spasm; F17.200 Nicotine dependence, unspecified, uncomplicated; G62.9 Polyneuropathy, unspecified; F41.9 Anxiety disorder, unspecified; G89.4 Chronic pain syndrome; Z95.820 Peripheral vascular angioplasty status with implants and grafts; Z89.411 Acquired absence of right great toe
CPT/HCPCS: 36415; 72170; 80048; 85014; 85018; 85025; C1713; J0171; J0690; J1100; J1885; J2001; J2250; J2270; J2405; J2795; J3370; J7030; J7040